=== PATIENT | female | born 1975 | race Caucasian/White ===

== ENCOUNTER 2019-10-14 02:00 | Inpatient (IN) | payer BC ==
[2019-10-14] VITALS (13 sets, daily range): BP systolic 90–102; BP diastolic 48–68
[~2019-10-14] VITALS: Ht 172.7 cm; Wt 88.1 kg
--- NOTE | 2019-10-14 02:00 | NUR ---
Received report from Selene at [facility]. Patient arrived to unit at 0150. Patient had complained of pain rating of 7 out of 10. Patient family showed up during the admission process. Received admit orders from Dr. Guevara. Patient bed was placed in lowest position and locked and call light placed within reach. Will continue to monitor patient.
[2019-10-14] MEDS ORDERED: VENL75CA PO (02:20)
[2019-10-14] MEDS ORDERED: ONDANSETRON PF 4 MG/2 ML VIAL. IV PRN ×2 (02:30→11:15)
[2019-10-14] MEDS ORDERED: diphenhydrAMINE 50 MG/ML VIAL IVP PRN (02:30)
[2019-10-14] MEDS ORDERED: ZOLPIDEM 5 MG TABLET. PO PRN (02:30)
[2019-10-14] MEDS: HYDROmorphone 2 MG/ML VIAL IV PRN ×2 (02:55→07:36)
[2019-10-14] MEDS: IV NORMAL SALINE 1000ML BAG 1,000 ML IV SCH ×4 (03:00→23:00)
[2019-10-14 05:10] LABS: BASO % 0 % (0-3); EOS # 0.1 x10^3/uL (0.0-0.7); EOS % 1 % (0-3); HEMATOCRIT 38.5 % (36.0-47.0); HEMOGLOBIN 12.9 g/dL (12.0-15.5); LYMPH # 0.9 x10^3/uL (1.0-4.8); LYMPH % 6 % (24-48); MEAN CORPUSCULAR HEMOGLOBIN 32 pg (25-35); MEAN CORPUSCULAR HGB CONC 33 g/dL (31-37); MEAN CORPUSCULAR VOLUME 97 fL (79-100); MONO % 6 % (0-9); NEUT # 13.5 x10^3/uL (1.8-7.7); NEUT % 87 % (31-73); PLATELET COUNT 154 x10^3/uL (140-400); RED BLOOD COUNT 3.99 x10^6/uL (3.50-5.40); RED CELL DISTRIBUTION WIDTH 13.6 % (11.5-14.5); WHITE BLOOD COUNT 15.5 x10^3/uL (4.0-11.0)
[2019-10-14 05:24] LABS: ALBUMIN/GLOBULIN RATIO 0.9 (1.0-1.7); CALCIUM 7.8 mg/dL (8.5-10.1); CREATININE 0.6 mg/dL (0.6-1.0); GFR 108.6; POTASSIUM 3.5 mmol/L (3.5-5.1); TOTAL BILIRUBIN 0.5 mg/dL (0.2-1.0); TOTAL PROTEIN 6.2 g/dL (6.4-8.2)
[2019-10-14] MEDS: PIPERACILLIN/TAZOBACTAM 3.375 GM in IV NORMAL SALINE 50ML 50 ML IV SCH ×4 (05:47→23:40)
[2019-10-14] MEDS: KETOROLAC 30 MG/ML VIAL. IVP PRN ×3 (05:47→17:22)
[2019-10-14 06:18] LABS: % BANDS 2 % (0-9); % EOS 1 % (0-5); % LYMPHS 12 % (24-48); % MONOS 3 % (0-10); % SEGS 82 % (35-66); PLT ESTIMATE ADEQUATE (ADEQUATE)
[2019-10-14 06:19] LABS: ANISOCYTOSIS SLIGHT
[2019-10-14] MEDS: ENOXAPARIN 40 MG/0.4 ML SYRINGE. SQ SCH (07:56)
--- NOTE | 2019-10-14 08:08 | PDOC ---
Provider Note Provider Note IR NOTE Consulted for possible abscess drainage, periappendiceal. CT reviewed. No drainable abscess is seen. there are changes of acute appendicitis. The inflamed appendix extends to the right adnexa, and abuts the right ovary where there is a small rim enhancing structure I believe to be an involuting ovarian cyst. The cyst measures just over 1 cm in diameter. No percutaneous intervention is planned at this time. VANITA GLASS MD Oct 14, 2019 08:08
[2019-10-14 08:29] LABS: PROTHROMBIN TIME PATIENT 13.9 SEC (11.7-14.0)
--- NOTE | 2019-10-14 08:56 | PDOC1 ---
History and Physical Date of Admission Date of Admission DATE: 10/14/19 TIME: 08:55 Source Source: Chart review, Patient History of Present Illness History of Present Illness Ms. Pompa, is a 44-year-old female transfer [facility] w/ acute right lower quadrant abdominal pain. She started with general abdominal pain that was mild 2 days ago, now is severe and she is tearful, even after toradol and IV dilaudid. It is now a sharp and stabbing feeling that is migrated to the right lower quadrant. CT scan showed acute appy, poss perf with inflammation near ovarian cyst. , She's had ovarian cysts in the past, reports left ovary removed previously she has fever and severe 10/10 pain or chills. She has had several episodes of vomiting due to the pain. Past Medical History Cardiovascular: No pertinent hx Pulmonary: No pertinent hx GI: No pertinent hx Heme/Onc: No pertinent hx Hepatobiliary: No pertinent hx Psych: No pertinent hx ENT: No pertinent hx Renal/: No pertinent hx Grav: 2 Para: 2 Past Surgical History Past Surgical History: Other (left ovary removed) Family History Family History: No Significant Social History Smoke: <1 pack per day (one or two a week) ALCOHOL: rare Drugs: None Current Medications Current Medications Current Medications Sodium Chloride 1,000 ml @ 100 mls/hr Q10H IV Last administered on 10/14/19at 03:00; Start 10/14/19 at 03:00 Ondansetron HCl (Zofran) 4 mg PRN Q4HRS PRN IV NAUSEA/VOMITING 1ST CHOICE; Start 10/14/19 at 02:30 Zolpidem Tartrate (Ambien) 5 mg PRN QHS PRN PO INSOMNIA; Start 10/14/19 at 02:30 Acetaminophen (Tylenol) 650 mg PRN Q4HRS PRN PO TEMP OVER 100.4F OR MILD PAIN; Start 10/14/19 at 02:30 Diphenhydramine HCl (Benadryl) 25 mg PRN Q4HRS PRN IVP ITCHING; Start 10/14/19 at 02:30 Enoxaparin Sodium (Lovenox 40mg Syringe) 40 mg DAILY SQ ; Start 10/14/19 at 09:00 Piperacillin Sod/ Tazobactam Sod 3.375 gm/Sodium Chloride 50 ml @ 100 mls/hr Q6HRS IV Last administered on 10/14/19at 05:47; Start 10/14/19 at 06:00 Metronidazole 100 ml @ 100 mls/hr Q8HRS IV Last administered on 10/14/19at 05:47; Start 10/14/19 at 06:00 Ketorolac Tromethamine (Toradol 30mg Vial) 30 mg PRN Q6HRS PRN IVP MODERATE PAIN 4-6 Last administered on 10/14/19at 08:23; Start 10/14/19 at 02:30 Hydromorphone HCl (Dilaudid) 1 mg PRN Q4HRS PRN IV SEVERE PAIN 7-10 Last administered on 10/14/19at 07:36; Start 10/14/19 at 02:30 Non-Formulary Medication (Venlafaxine Hcl (Effexor Xr)) 1 cap DAILY PO ; Start 10/14/19 at 09:00; Status UNV Active Scripts Active Reported Effexor Xr (Venlafaxine Hcl) 75 Mg Cap.er.24h 1 Cap PO DAILY Allergies Allergies: Coded Allergies: No Known Drug Allergies (Unverified , 10/14/19) ROS General: No: Chills, Night Sweats, Fatigue, Malaise, Appetite, Other PSYCHOLOGICAL ROS: No: Anxiety, Behavioral Disorder, Concentration difficultie, Decreased libido, Depression, Disorientation, Hallucinations, Hostility, Irritablity, Memory difficulties, Mood Swings, Obsessive thoughts, Physical abuse, Sexual abuse, Sleep disturbances, Suicidal ideation, Other Eyes: No Blurry vision, No Decreased vision, No Double vision, No Dry eyes, No Excessive tearing, No Eye Pain, No Itchy Eyes, No Loss of vision, No Photophobia, No Scotomata, No Uses contacts, No Uses glasses, No Other HEENT: No: Heacaches, Visual Changes, Hearing change, Nasal congestion, Nasal discharge, Oral lesions, Sinus pain, Sore Throat, Epistaxis, Sneezing, Snoring, Tinnitus, Vertigo, Vocal changes, Other Respiratory: No: Cough, Hemoptysis, Orthopnea, Pleuritic Pain, Shortness of breath, SOB with excertion, Sputum Changes, Stridor, Tachypnea, Wheezing, Other Cardiovascular: No Chest Pain, No Palpitations, No Orthopnea, No Paroxysmal Noc. Dyspnea, No Edema, No Lt Headedness, No Other Gastrointestinal: Yes Nausea, Yes Abdominal Pain; No Vomiting, No Diarrhea, No Constipation, No Melena, No Hematochezia, No Other Genitourinary: No Dysuria, No Frequency, No Incontinence, No Hematuria, No Retention, No Discharge, No Urgency, No Pain, No Flank Pain, No Other, No , No , No , No , No , No , No Musculoskeletal: No Gait Disturbance, No Joint Pain, No Joint Stiffness, No Joint Swelling, No Muscle Pain, No Muscular Weakness, No Pain In:, No Swelling In:, No Other Neurological: No Behavorial Changes, No Bowel/Bladder ControlChng, No Confusion, No Dizziness, No Gait Disturbance, No Headaches, No Impaired Coord/balance, No Memory Loss, No Numbness/Tingling, No Seizures, No Speech Problems, No Tremors, No Visual Changes, No Weakness, No Other Skin: Yes Dry Skin; No Eczema, No Hair Changes, No Lumps, No Mole Changes, No Mottling, No Nail Changes, No Pruritus, No Rash, No Skin Lesion Changes, No Other, No Acne Physical Exam General: Alert, Cooperative, severe distress (pain) HEENT: Atraumatic, PERRLA, EOMI, Mucous membr. moist/pink Lungs: Clear to auscultation, Normal air movement Abdomen: Other (tender, guarding, distress, RLQ pain) Extremities: No cyanosis, No edema, Normal pulses Skin: No rashes, No significant lesion Neuro: Normal speech, Sensation intact, Other Psych/Mental Status: Other (distress) Vitals Vitals Vital Signs Date Time Temp Pulse Resp B/P (MAP) Pulse Ox O2 Delivery O2 Flow Rate FiO2 10/14/19 07:36 18 Room Air 10/14/19 07:00 98.1 101 90/48 (62) 98 98.1 Labs Labs Laboratory Tests Test 10/14/19 03:40 10/14/19 08:04 White Blood Count 15.5 x10^3/uL (4.0-11.0) Red Blood Count 3.99 x10^6/uL (3.50-5.40) Hemoglobin 12.9 g/dL (12.0-15.5) Hematocrit 38.5 % (36.0-47.0) Mean Corpuscular Volume 97 fL (79-100) Mean Corpuscular Hemoglobin 32 pg (25-35) Mean Corpuscular Hemoglobin Concent 33 g/dL (31-37) Red Cell Distribution Width 13.6 % (11.5-14.5) Platelet Count 154 x10^3/uL (140-400) Neutrophils (%) (Auto) 87 % (31-73) Lymphocytes (%) (Auto) 6 % (24-48) Monocytes (%) (Auto) 6 % (0-9) Eosinophils (%) (Auto) 1 % (0-3) Basophils (%) (Auto) 0 % (0-3) Neutrophils # (Auto) 13.5 x10^3/uL (1.8-7.7) Lymphocytes # (Auto) 0.9 x10^3/uL (1.0-4.8) Monocytes # (Auto) 1.0 x10^3/uL (0.0-1.1) Eosinophils # (Auto) 0.1 x10^3/uL (0.0-0.7) Basophils # (Auto) 0.0 x10^3/uL (0.0-0.2) Segmented Neutrophils % 82 % (35-66) Band Neutrophils % 2 % (0-9) Lymphocytes % 12 % (24-48) Monocytes % 3 % (0-10) Eosinophils % 1 % (0-5) Platelet Estimate Adequate (ADEQUATE) Anisocytosis Slight Sodium Level 137 mmol/L (136-145) Potassium Level 3.5 mmol/L (3.5-5.1) Chloride Level 103 mmol/L (98-107) Carbon Dioxide Level 24 mmol/L (21-32) Anion Gap 10 (6-14) Blood Urea Nitrogen 13 mg/dL (7-20) Creatinine 0.6 mg/dL (0.6-1.0) Estimated GFR (Cockcroft-Gault) 108.6 BUN/Creatinine Ratio 22 (6-20) Glucose Level 98 mg/dL (70-99) Calcium Level 7.8 mg/dL (8.5-10.1) Total Bilirubin 0.5 mg/dL (0.2-1.0) Aspartate Amino Transf (AST/SGOT) 12 U/L (15-37) Alanine Aminotransferase (ALT/SGPT) 14 U/L (14-59) Alkaline Phosphatase 43 U/L (46-116) Total Protein 6.2 g/dL (6.4-8.2) Albumin 3.0 g/dL (3.4-5.0) Albumin/Globulin Ratio 0.9 (1.0-1.7) Prothrombin Time 13.9 SEC (11.7-14.0) Prothromb Time International Ratio 1.1 (0.8-1.1) Laboratory Tests Test 10/14/19 03:40 10/14/19 08:04 White Blood Count 15.5 x10^3/uL (4.0-11.0) Red Blood Count 3.99 x10^6/uL (3.50-5.40) Hemoglobin 12.9 g/dL (12.0-15.5) Hematocrit 38.5 % (36.0-47.0) Mean Corpuscular Volume 97 fL (79-100) Mean Corpuscular Hemoglobin 32 pg (25-35) Mean Corpuscular Hemoglobin Concent 33 g/dL (31-37) Red Cell Distribution Width 13.6 % (11.5-14.5) Platelet Count 154 x10^3/uL (140-400) Neutrophils (%) (Auto) 87 % (31-73) Lymphocytes (%) (Auto) 6 % (24-48) Monocytes (%) (Auto) 6 % (0-9) Eosinophils (%) (Auto) 1 % (0-3) Basophils (%) (Auto) 0 % (0-3) Neutrophils # (Auto) 13.5 x10^3/uL (1.8-7.7) Lymphocytes # (Auto) 0.9 x10^3/uL (1.0-4.8) Monocytes # (Auto) 1.0 x10^3/uL (0.0-1.1) Eosinophils # (Auto) 0.1 x10^3/uL (0.0-0.7) Basophils # (Auto) 0.0 x10^3/uL (0.0-0.2) Segmented Neutrophils % 82 % (35-66) Band Neutrophils % 2 % (0-9) Lymphocytes % 12 % (24-48) Monocytes % 3 % (0-10) Eosinophils % 1 % (0-5) Platelet Estimate Adequate (ADEQUATE) Anisocytosis Slight Sodium Level 137 mmol/L (136-145) Potassium Level 3.5 mmol/L (3.5-5.1) Chloride Level 103 mmol/L (98-107) Carbon Dioxide Level 24 mmol/L (21-32) Anion Gap 10 (6-14) Blood Urea Nitrogen 13 mg/dL (7-20) Creatinine 0.6 mg/dL (0.6-1.0) Estimated GFR (Cockcroft-Gault) 108.6 BUN/Creatinine Ratio 22 (6-20) Glucose Level 98 mg/dL (70-99) Calcium Level 7.8 mg/dL (8.5-10.1) Total Bilirubin 0.5 mg/dL (0.2-1.0) Aspartate Amino Transf (AST/SGOT) 12 U/L (15-37) Alanine Aminotransferase (ALT/SGPT) 14 U/L (14-59) Alkaline Phosphatase 43 U/L (46-116) Total Protein 6.2 g/dL (6.4-8.2) Albumin 3.0 g/dL (3.4-5.0) Albumin/Globulin Ratio 0.9 (1.0-1.7) Prothrombin Time 13.9 SEC (11.7-14.0) Prothromb Time International Ratio 1.1 (0.8-1.1) VTE Prophylaxis Ordered VTE Prophylaxis Devices: No VTE Pharmacological Prophylaxi: No Assessment/Plan Assessment/Plan acute abdominal pain, toradol and dilaudid giving some improvement acute perforated appendicitis sepsis, flagyl and zosyn, IV fluid will bolus IV saline hx depression, admit, IR consulted, will need OR Hemodynamically unstable?: No Is patient in severe pain?: Yes Justification for admission: acute appy and sepsis Is NPO status required?: Yes AKIN PICKETT MD Oct 14, 2019 08:56
[2019-10-14] MEDS: VENLAFAXINE XR 37.5 MG CAP.ER.24H. PO SCH (09:00)
[2019-10-14] MEDS ORDERED: IV NORMAL SALINE 1000ML BAG 1,000 ML IV ONE (09:00)
--- NOTE | 2019-10-14 10:47 | NUR ---
SW following for discharge planning. Chart reviewed, discussed with RN. Pt is from home with pt having surgery today. SW will continue to follow for any discharge planning needs.
--- NOTE | 2019-10-14 11:06 | PDOC2 ---
CONSULT Date of Consult Date of Consult DATE: 10/14/19 TIME: 11:00 Reason for Consult Reason for Consult: perforated appendicitis Referring Physician Referring Physician: Dr. Conti Identification/Chief Complaint Chief Complaint RLQ abd pain Source Source: Chart review, Patient History of Present Illness Reason for Visit: 44 yo F with abd pain beginning on 10/11, periumbilical and developing in RLQ. Pain is severe and not improved, if possibly slightly worse since admission. Also noted to have hematuria. Associated N/V. Accompanied by supportive . Past Medical History Cardiovascular: No pertinent hx Pulmonary: No pertinent hx GI: No pertinent hx Heme/Onc: No pertinent hx Hepatobiliary: No pertinent hx Psych: No pertinent hx ENT: No pertinent hx Renal/: No pertinent hx Grav: 2 Para: 2 Past Surgical History Past Surgical History: Other (left ovary removed) Family History Family History: No Significant Social History <1 pack per day (one or two a week) ALCOHOL: rare Drugs: None Current Medications Current Medications Current Medications Sodium Chloride 1,000 ml @ 100 mls/hr Q10H IV Last administered on 10/14/19at 03:00; Start 10/14/19 at 03:00 Ondansetron HCl (Zofran) 4 mg PRN Q4HRS PRN IV NAUSEA/VOMITING 1ST CHOICE; Start 10/14/19 at 02:30 Zolpidem Tartrate (Ambien) 5 mg PRN QHS PRN PO INSOMNIA; Start 10/14/19 at 02:30 Acetaminophen (Tylenol) 650 mg PRN Q4HRS PRN PO TEMP OVER 100.4F OR MILD PAIN; Start 10/14/19 at 02:30 Diphenhydramine HCl (Benadryl) 25 mg PRN Q4HRS PRN IVP ITCHING; Start 10/14/19 at 02:30 Enoxaparin Sodium (Lovenox 40mg Syringe) 40 mg DAILY SQ ; Start 10/14/19 at 09:00 Piperacillin Sod/ Tazobactam Sod 3.375 gm/Sodium Chloride 50 ml @ 100 mls/hr Q6HRS IV Last administered on 10/14/19at 05:47; Start 10/14/19 at 06:00 Metronidazole 100 ml @ 100 mls/hr Q8HRS IV Last administered on 10/14/19at 05:47; Start 10/14/19 at 06:00 Ketorolac Tromethamine (Toradol 30mg Vial) 30 mg PRN Q6HRS PRN IVP MODERATE PAIN 4-6 Last administered on 10/14/19at 08:23; Start 10/14/19 at 02:30 Hydromorphone HCl (Dilaudid) 1 mg PRN Q4HRS PRN IV SEVERE PAIN 7-10 Last administered on 10/14/19at 07:36; Start 10/14/19 at 02:30 Venlafaxine HCl (Effexor Xr) 75 mg DAILY PO ; Start 10/14/19 at 09:00 Sodium Chloride 1,000 ml @ 1,000 mls/hr 1X ONCE IV ; Start 10/14/19 at 09:00; Stop 10/14/19 at 09:59; Status DC Active Scripts Active Reported Effexor Xr (Venlafaxine Hcl) 75 Mg Cap.er.24h 1 Cap PO DAILY Allergies Allergies: Coded Allergies: No Known Drug Allergies (Unverified , 10/14/19) ROS Gastrointestinal: Yes Nausea, Yes Vomiting, Yes Abdominal Pain Physical Exam General: Alert, Oriented X3, Cooperative, moderate distress HEENT: Atraumatic Lungs: Normal air movement Abdomen: Soft, Other (TTP RLQ and diffusely, rovsing sign positive) Extremities: No clubbing, No cyanosis Skin: No rashes, No breakdown Neuro: Normal speech, Sensation intact Psych/Mental Status: Mental status NL, Mood NL Vitals VITALS Vital Signs Date Time Temp Pulse Resp B/P (MAP) Pulse Ox O2 Delivery O2 Flow Rate FiO2 10/14/19 08:00 Room Air 10/14/19 07:36 18 10/14/19 07:00 98.1 101 90/48 (62) 98 98.1 Labs Labs Laboratory Tests Test 10/14/19 03:40 10/14/19 08:04 White Blood Count 15.5 x10^3/uL (4.0-11.0) Red Blood Count 3.99 x10^6/uL (3.50-5.40) Hemoglobin 12.9 g/dL (12.0-15.5) Hematocrit 38.5 % (36.0-47.0) Mean Corpuscular Volume 97 fL (79-100) Mean Corpuscular Hemoglobin 32 pg (25-35) Mean Corpuscular Hemoglobin Concent 33 g/dL (31-37) Red Cell Distribution Width 13.6 % (11.5-14.5) Platelet Count 154 x10^3/uL (140-400) Neutrophils (%) (Auto) 87 % (31-73) Lymphocytes (%) (Auto) 6 % (24-48) Monocytes (%) (Auto) 6 % (0-9) Eosinophils (%) (Auto) 1 % (0-3) Basophils (%) (Auto) 0 % (0-3) Neutrophils # (Auto) 13.5 x10^3/uL (1.8-7.7) Lymphocytes # (Auto) 0.9 x10^3/uL (1.0-4.8) Monocytes # (Auto) 1.0 x10^3/uL (0.0-1.1) Eosinophils # (Auto) 0.1 x10^3/uL (0.0-0.7) Basophils # (Auto) 0.0 x10^3/uL (0.0-0.2) Segmented Neutrophils % 82 % (35-66) Band Neutrophils % 2 % (0-9) Lymphocytes % 12 % (24-48) Monocytes % 3 % (0-10) Eosinophils % 1 % (0-5) Platelet Estimate Adequate (ADEQUATE) Anisocytosis Slight Sodium Level 137 mmol/L (136-145) Potassium Level 3.5 mmol/L (3.5-5.1) Chloride Level 103 mmol/L (98-107) Carbon Dioxide Level 24 mmol/L (21-32) Anion Gap 10 (6-14) Blood Urea Nitrogen 13 mg/dL (7-20) Creatinine 0.6 mg/dL (0.6-1.0) Estimated GFR (Cockcroft-Gault) 108.6 BUN/Creatinine Ratio 22 (6-20) Glucose Level 98 mg/dL (70-99) Calcium Level 7.8 mg/dL (8.5-10.1) Total Bilirubin 0.5 mg/dL (0.2-1.0) Aspartate Amino Transf (AST/SGOT) 12 U/L (15-37) Alanine Aminotransferase (ALT/SGPT) 14 U/L (14-59) Alkaline Phosphatase 43 U/L (46-116) Total Protein 6.2 g/dL (6.4-8.2) Albumin 3.0 g/dL (3.4-5.0) Albumin/Globulin Ratio 0.9 (1.0-1.7) Prothrombin Time 13.9 SEC (11.7-14.0) Prothromb Time International Ratio 1.1 (0.8-1.1) Laboratory Tests Test 10/14/19 03:40 10/14/19 08:04 White Blood Count 15.5 x10^3/uL (4.0-11.0) Red Blood Count 3.99 x10^6/uL (3.50-5.40) Hemoglobin 12.9 g/dL (12.0-15.5) Hematocrit 38.5 % (36.0-47.0) Mean Corpuscular Volume 97 fL (79-100) Mean Corpuscular Hemoglobin 32 pg (25-35) Mean Corpuscular Hemoglobin Concent 33 g/dL (31-37) Red Cell Distribution Width 13.6 % (11.5-14.5) Platelet Count 154 x10^3/uL (140-400) Neutrophils (%) (Auto) 87 % (31-73) Lymphocytes (%) (Auto) 6 % (24-48) Monocytes (%) (Auto) 6 % (0-9) Eosinophils (%) (Auto) 1 % (0-3) Basophils (%) (Auto) 0 % (0-3) Neutrophils # (Auto) 13.5 x10^3/uL (1.8-7.7) Lymphocytes # (Auto) 0.9 x10^3/uL (1.0-4.8) Monocytes # (Auto) 1.0 x10^3/uL (0.0-1.1) Eosinophils # (Auto) 0.1 x10^3/uL (0.0-0.7) Basophils # (Auto) 0.0 x10^3/uL (0.0-0.2) Segmented Neutrophils % 82 % (35-66) Band Neutrophils % 2 % (0-9) Lymphocytes % 12 % (24-48) Monocytes % 3 % (0-10) Eosinophils % 1 % (0-5) Platelet Estimate Adequate (ADEQUATE) Anisocytosis Slight Sodium Level 137 mmol/L (136-145) Potassium Level 3.5 mmol/L (3.5-5.1) Chloride Level 103 mmol/L (98-107) Carbon Dioxide Level 24 mmol/L (21-32) Anion Gap 10 (6-14) Blood Urea Nitrogen 13 mg/dL (7-20) Creatinine 0.6 mg/dL (0.6-1.0) Estimated GFR (Cockcroft-Gault) 108.6 BUN/Creatinine Ratio 22 (6-20) Glucose Level 98 mg/dL (70-99) Calcium Level 7.8 mg/dL (8.5-10.1) Total Bilirubin 0.5 mg/dL (0.2-1.0) Aspartate Amino Transf (AST/SGOT) 12 U/L (15-37) Alanine Aminotransferase (ALT/SGPT) 14 U/L (14-59) Alkaline Phosphatase 43 U/L (46-116) Total Protein 6.2 g/dL (6.4-8.2) Albumin 3.0 g/dL (3.4-5.0) Albumin/Globulin Ratio 0.9 (1.0-1.7) Prothrombin Time 13.9 SEC (11.7-14.0) Prothromb Time International Ratio 1.1 (0.8-1.1) Images Images CT at [facility] reviewed and c/w perforated appendicitis Assessment/Plan Assessment/Plan Perforated appendicitis. Given pain and peritoneal signs, conservative management with IV abx and bowel rest not appropriate. Will proceed with laparoscopic versus open appendectomy. R/R/B/A d/w pt and pt's supportive family. Risks, including, but not limited to: bleeding, infection, damage to surrounding structures, risk of anesthesia, risk of open, risk of . Pt is at high risk for post operative abscess. They appear to understand, their questions are answered and they elect to pro ceed. Thanks for consult! LINA WILLIAM MD Oct 14, 2019 11:06
[2019-10-14] MEDS ORDERED: IV RINGERS,LACTATED 1000ML 1,000 ML IV SCH (11:09)
[2019-10-14] MEDS ORDERED: PROCHLORPERAZINE 10 MG/2 ML VIAL. IV PRN (11:15)
[2019-10-14] MEDS ORDERED: fentaNYL PF VIAL 100 MCG/2 ML VIAL IV PRN (11:15)
[2019-10-14] MEDS ORDERED: MORPHINE SULFATE 2 MG/ML VIAL. IV PRN ×2 (11:15→13:30)
[2019-10-14] MEDS ORDERED: HYDROmorphone 2 MG/ML VIAL IV PRN (11:15)
[2019-10-14] MEDS ORDERED: fentaNYL PF VIAL 100 MCG/2 ML VIAL ONE ×2 (11:37→12:49)
[2019-10-14] MEDS: fentaNYL PF VIAL 100 MCG/2 ML VIAL IV PRN ×2 (11:37→13:34)
[2019-10-14] MEDS ORDERED: ROCURONIUM 50 MG/5 ML VIAL. ONE (11:44)
[2019-10-14] MEDS ORDERED: BUPIVACAINE-EPI 0.5%-1:200000 MPF 30 ML VIAL. INJ ONE (12:00)
[2019-10-14 12:04] LABS: U PREG PATIENT NEGATIVE (NEG)
[2019-10-14] MEDS ORDERED: PHENYLEPHRINE in 0.9% NACL PF 1 MG/10 ML SYRINGE. IV ONE (12:27)
[2019-10-14] MEDS ORDERED: LIDOCAINE 2% PF 5 ML VIAL. ONE (12:27)
[2019-10-14] MEDS ORDERED: DEXAMETHASONE SOD PHOS 4 MG/ML VIAL ONE (12:27)
[2019-10-14] MEDS ORDERED: PROPOFOL 20 ML IV ONE (12:27)
[2019-10-14] MEDS ORDERED: ONDANSETRON PF 4 MG/2 ML VIAL. ONE (12:27)
[2019-10-14] MEDS ORDERED: NEOSTIGMINE METHYLSULFATE 5 MG/5 ML SYRINGE. ONE (13:02)
[2019-10-14] MEDS ORDERED: GLYCOPYRROLATE 1 MG/5 ML VIAL. ONE (13:02)
[2019-10-14] MEDS: IV RINGERS,LACTATED 1000ML 1,000 ML IV SCH ×2 (13:25→23:10)
[2019-10-14] MEDS ORDERED: ENOXAPARIN 40 MG/0.4 ML SYRINGE. SQ SCH (13:30)
[2019-10-14] MEDS ORDERED: 0.9 % SODIUM CHLORIDE 10 ML DISP.SYRIN. IV PRN (13:30)
[2019-10-14] MEDS ORDERED: ONDANSETRON PF 4 MG/2 ML VIAL. IVP PRN (13:30)
[2019-10-14] MEDS ORDERED: NALOXONE 0.4 MG/ML VIAL. IV PRN (13:30)
--- NOTE | 2019-10-14 13:39 | PDOC4 ---
OPERATIVE NOTE Date: Date: Oct 14, 2019 Pre-Op Diagnosis: Perforated appendicitis Post-Op Diagnosis: same Procedure Performed: Laparoscopic appendectomy Surgeon: Zechariah William Anesthesia Type: GETA plus local Blood Loss: 50 Specimans Obtained: appendix Findings: Perforated appendicitis with diffuse purulent fluid throughout the abdomen. Gangrenous distal 1/2 of appendix. No obvious feculent material. Complications: none Operative Note: After obtaining informed consent, patient was taken to OR, induced under GETA and prepped in the usual fashion. 5 mm port placed LLQ and suprapubic, 12 port placed umbilical, all under laparoscopic guidance. Abdominal cavity was explored and normal except as indicated above. The uterus and right ovary were inflamed, secondary to diffuse abscess, but otherwise normal. Small bowel was erythematous from abscess, but otherwise normal. Viscera bluntly dissected off the appendix and abdominal wall. Appendix was bluntly dissected out. Defect created in mesoappendix. General load DREW taken across base of appendix. Mesoappendix divided with vascular load. Additional hemostasis obtained with clips. Appendix placed in bag, delivered and sent to pathology. Copious irrigation using 4 liters of saline. No evidence of bleeding or other pathology. Ports removed without bleeding. Fascia repaired with 0 vicryl. Skin repaired with 4 0 monocryl. Dressing placed. Patient tolerated procedure well and sent to PACU in stable condition. All counts correct. Wound class is 4. LINA WILLIAM MD Oct 14, 2019 13:38
[2019-10-14] MEDS: HYDROcodone/APAP 5/325MG 1 TAB TABLET PO PRN (20:38)
[2019-10-15 03:00] VITALS: BP 95/56
[2019-10-15 05:22] LABS: BASO % 0 % (0-3); EOS % 0 % (0-3); HEMATOCRIT 36.3 % (36.0-47.0); HEMOGLOBIN 12.3 g/dL (12.0-15.5); LYMPH % 11 % (24-48); MEAN CORPUSCULAR HEMOGLOBIN 33 pg (25-35); MEAN CORPUSCULAR HGB CONC 34 g/dL (31-37); MEAN CORPUSCULAR VOLUME 97 fL (79-100); MONO # 0.4 x10^3/uL (0.0-1.1); MONO % 4 % (0-9); NEUT # 8.1 x10^3/uL (1.8-7.7); NEUT % 85 % (31-73); PLATELET COUNT 152 x10^3/uL (140-400); RED BLOOD COUNT 3.73 x10^6/uL (3.50-5.40); RED CELL DISTRIBUTION WIDTH 13.8 % (11.5-14.5); WHITE BLOOD COUNT 9.6 x10^3/uL (4.0-11.0)
[2019-10-15] MEDS: PIPERACILLIN/TAZOBACTAM 3.375 GM in IV NORMAL SALINE 50ML 50 ML IV SCH ×3 (06:00→18:46)
[2019-10-15] MEDS: HYDROcodone/APAP 5/325MG 1 TAB TABLET PO PRN ×4 (06:00→20:29)
[2019-10-15 06:06] LABS: CALCIUM 7.9 mg/dL (8.5-10.1); CREATININE 0.7 mg/dL (0.6-1.0)
[2019-10-15 06:07] LABS: GFR 90.9; POTASSIUM 3.9 mmol/L (3.5-5.1)
[2019-10-15 07:00] VITALS: BP 84/48
[2019-10-15] MEDS: VENLAFAXINE XR 37.5 MG CAP.ER.24H. PO SCH (08:31)
[2019-10-15] MEDS: ENOXAPARIN 40 MG/0.4 ML SYRINGE. SQ SCH (08:32)
--- NOTE | 2019-10-15 09:08 | PDOC ---
SURGICAL PROGRESS NOTE Subjective + flatus ambulating pink colored urine Vital Signs Vital Signs Date Time Temp Pulse Resp B/P (MAP) Pulse Ox O2 Delivery O2 Flow Rate FiO2 10/15/19 07:00 98.5 88 18 84/48 (60) 95 Room Air 98.5 10/14/19 13:45 10 I&O Intake and Output 10/15/19 07:00 Intake Total 1090 ml Output Total 61 ml Balance 1029 ml Intake Oral 240 ml IV Total 850 ml Output Urine Total 51 ml Estimated Blood Loss 10 ml # Voids 3 General: Alert, Oriented X3, Cooperative Abdomen: Soft, Other (ND, lap dressings dry) Labs Laboratory Tests Test 10/14/19 03:40 10/14/19 08:04 10/14/19 11:00 10/15/19 04:10 White Blood Count 15.5 x10^3/uL (4.0-11.0) 9.6 x10^3/uL (4.0-11.0) Red Blood Count 3.99 x10^6/uL (3.50-5.40) 3.73 x10^6/uL (3.50-5.40) Hemoglobin 12.9 g/dL (12.0-15.5) 12.3 g/dL (12.0-15.5) Hematocrit 38.5 % (36.0-47.0) 36.3 % (36.0-47.0) Mean Corpuscular Volume 97 fL (79-100) 97 fL (79-100) Mean Corpuscular Hemoglobin 32 pg (25-35) 33 pg (25-35) Mean Corpuscular Hemoglobin Concent 33 g/dL (31-37) 34 g/dL (31-37) Red Cell Distribution Width 13.6 % (11.5-14.5) 13.8 % (11.5-14.5) Platelet Count 154 x10^3/uL (140-400) 152 x10^3/uL (140-400) Neutrophils (%) (Auto) 87 % (31-73) 85 % (31-73) Lymphocytes (%) (Auto) 6 % (24-48) 11 % (24-48) Monocytes (%) (Auto) 6 % (0-9) 4 % (0-9) Eosinophils (%) (Auto) 1 % (0-3) 0 % (0-3) Basophils (%) (Auto) 0 % (0-3) 0 % (0-3) Neutrophils # (Auto) 13.5 x10^3/uL (1.8-7.7) 8.1 x10^3/uL (1.8-7.7) Lymphocytes # (Auto) 0.9 x10^3/uL (1.0-4.8) 1.0 x10^3/uL (1.0-4.8) Monocytes # (Auto) 1.0 x10^3/uL (0.0-1.1) 0.4 x10^3/uL (0.0-1.1) Eosinophils # (Auto) 0.1 x10^3/uL (0.0-0.7) 0.0 x10^3/uL (0.0-0.7) Basophils # (Auto) 0.0 x10^3/uL (0.0-0.2) 0.0 x10^3/uL (0.0-0.2) Segmented Neutrophils % 82 % (35-66) Band Neutrophils % 2 % (0-9) Lymphocytes % 12 % (24-48) Monocytes % 3 % (0-10) Eosinophils % 1 % (0-5) Platelet Estimate Adequate (ADEQUATE) Anisocytosis Slight Sodium Level 137 mmol/L (136-145) 140 mmol/L (136-145) Potassium Level 3.5 mmol/L (3.5-5.1) 3.9 mmol/L (3.5-5.1) Chloride Level 103 mmol/L (98-107) 107 mmol/L (98-107) Carbon Dioxide Level 24 mmol/L (21-32) 22 mmol/L (21-32) Anion Gap 10 (6-14) 11 (6-14) Blood Urea Nitrogen 13 mg/dL (7-20) 11 mg/dL (7-20) Creatinine 0.6 mg/dL (0.6-1.0) 0.7 mg/dL (0.6-1.0) Estimated GFR (Cockcroft-Gault) 108.6 90.9 BUN/Creatinine Ratio 22 (6-20) Glucose Level 98 mg/dL (70-99) 109 mg/dL (70-99) Calcium Level 7.8 mg/dL (8.5-10.1) 7.9 mg/dL (8.5-10.1) Total Bilirubin 0.5 mg/dL (0.2-1.0) Aspartate Amino Transf (AST/SGOT) 12 U/L (15-37) Alanine Aminotransferase (ALT/SGPT) 14 U/L (14-59) Alkaline Phosphatase 43 U/L (46-116) Total Protein 6.2 g/dL (6.4-8.2) Albumin 3.0 g/dL (3.4-5.0) Albumin/Globulin Ratio 0.9 (1.0-1.7) Prothrombin Time 13.9 SEC (11.7-14.0) Prothromb Time International Ratio 1.1 (0.8-1.1) Urine Test Negative (NEG) Laboratory Tests Test 10/14/19 11:00 10/15/19 04:10 Urine Test Negative (NEG) White Blood Count 9.6 x10^3/uL (4.0-11.0) Red Blood Count 3.73 x10^6/uL (3.50-5.40) Hemoglobin 12.3 g/dL (12.0-15.5) Hematocrit 36.3 % (36.0-47.0) Mean Corpuscular Volume 97 fL (79-100) Mean Corpuscular Hemoglobin 33 pg (25-35) Mean Corpuscular Hemoglobin Concent 34 g/dL (31-37) Red Cell Distribution Width 13.8 % (11.5-14.5) Platelet Count 152 x10^3/uL (140-400) Neutrophils (%) (Auto) 85 % (31-73) Lymphocytes (%) (Auto) 11 % (24-48) Monocytes (%) (Auto) 4 % (0-9) Eosinophils (%) (Auto) 0 % (0-3) Basophils (%) (Auto) 0 % (0-3) Neutrophils # (Auto) 8.1 x10^3/uL (1.8-7.7) Lymphocytes # (Auto) 1.0 x10^3/uL (1.0-4.8) Monocytes # (Auto) 0.4 x10^3/uL (0.0-1.1) Eosinophils # (Auto) 0.0 x10^3/uL (0.0-0.7) Basophils # (Auto) 0.0 x10^3/uL (0.0-0.2) Sodium Level 140 mmol/L (136-145) Potassium Level 3.9 mmol/L (3.5-5.1) Chloride Level 107 mmol/L (98-107) Carbon Dioxide Level 22 mmol/L (21-32) Anion Gap 11 (6-14) Blood Urea Nitrogen 11 mg/dL (7-20) Creatinine 0.7 mg/dL (0.6-1.0) Estimated GFR (Cockcroft-Gault) 90.9 Glucose Level 109 mg/dL (70-99) Calcium Level 7.9 mg/dL (8.5-10.1) Assessment/Plan s/p appy, perf, gang continue IV abx lab in AM push fluids NAEEM SINGLETARY APRN Oct 15, 2019 09:08
[2019-10-15] MEDS: IV NORMAL SALINE 1000ML BAG 1,000 ML IV SCH ×3 (09:57→20:28)
[2019-10-15 11:00] VITALS: BP 96/52
[2019-10-15] MEDS ORDERED: POLYETHYLENE GLYCOL 3350 17 GM PACKET. PO ONE (13:00)
[2019-10-15] MEDS ORDERED: MAGNESIUM HYDROXIDE 2,400 MG/30 ML ORAL.SUSP. PO PRN (13:00)
[2019-10-15] MEDS ORDERED: DOCUSATE SODIUM 100 MG CAPSULE. PO PRN (13:00)
[2019-10-15] MEDS ORDERED: PHENYLEPH/MINERAL OIL/PETROLAT RECTAL OINTMENT TUBE. RC PRN (13:00)
--- NOTE | 2019-10-15 13:07 | PDOC ---
PROGRESS NOTES Chief Complaint Chief Complaint acute perforated appendicitis, w./ acute abd pain sepsis, zosyn, IV fluid will bolus IV saline hx depression, History of Present Illness History of Present Illness feels much better ambulating, doing well she is very worried about constipation, no movement in 4 days, meds added cont IV Fluid for low blood pressure, HR ok, WBC better Vitals Vitals Vital Signs Date Time Temp Pulse Resp B/P (MAP) Pulse Ox O2 Delivery O2 Flow Rate FiO2 10/15/19 11:45 Room Air 10/15/19 11:00 98.2 84 18 96/52 (67) 98 98.2 10/14/19 13:45 10 Physical Exam General: Alert, Oriented X3, Cooperative Abdomen: Soft, Other (ND, lap dressings dry) Extremities: No clubbing, No cyanosis Skin: No rashes, No breakdown Labs LABS Laboratory Tests Test 10/15/19 04:10 White Blood Count 9.6 x10^3/uL (4.0-11.0) Red Blood Count 3.73 x10^6/uL (3.50-5.40) Hemoglobin 12.3 g/dL (12.0-15.5) Hematocrit 36.3 % (36.0-47.0) Mean Corpuscular Volume 97 fL (79-100) Mean Corpuscular Hemoglobin 33 pg (25-35) Mean Corpuscular Hemoglobin Concent 34 g/dL (31-37) Red Cell Distribution Width 13.8 % (11.5-14.5) Platelet Count 152 x10^3/uL (140-400) Neutrophils (%) (Auto) 85 % (31-73) Lymphocytes (%) (Auto) 11 % (24-48) Monocytes (%) (Auto) 4 % (0-9) Eosinophils (%) (Auto) 0 % (0-3) Basophils (%) (Auto) 0 % (0-3) Neutrophils # (Auto) 8.1 x10^3/uL (1.8-7.7) Lymphocytes # (Auto) 1.0 x10^3/uL (1.0-4.8) Monocytes # (Auto) 0.4 x10^3/uL (0.0-1.1) Eosinophils # (Auto) 0.0 x10^3/uL (0.0-0.7) Basophils # (Auto) 0.0 x10^3/uL (0.0-0.2) Sodium Level 140 mmol/L (136-145) Potassium Level 3.9 mmol/L (3.5-5.1) Chloride Level 107 mmol/L (98-107) Carbon Dioxide Level 22 mmol/L (21-32) Anion Gap 11 (6-14) Blood Urea Nitrogen 11 mg/dL (7-20) Creatinine 0.7 mg/dL (0.6-1.0) Estimated GFR (Cockcroft-Gault) 90.9 Glucose Level 109 mg/dL (70-99) Calcium Level 7.9 mg/dL (8.5-10.1) Comment Review of Relevant I have reviewed the following items marquis (where applicable) has been applied. Labs Laboratory Tests Test 10/14/19 03:40 10/14/19 08:04 10/14/19 11:00 10/15/19 04:10 White Blood Count 15.5 x10^3/uL (4.0-11.0) 9.6 x10^3/uL (4.0-11.0) Red Blood Count 3.99 x10^6/uL (3.50-5.40) 3.73 x10^6/uL (3.50-5.40) Hemoglobin 12.9 g/dL (12.0-15.5) 12.3 g/dL (12.0-15.5) Hematocrit 38.5 % (36.0-47.0) 36.3 % (36.0-47.0) Mean Corpuscular Volume 97 fL (79-100) 97 fL (79-100) Mean Corpuscular Hemoglobin 32 pg (25-35) 33 pg (25-35) Mean Corpuscular Hemoglobin Concent 33 g/dL (31-37) 34 g/dL (31-37) Red Cell Distribution Width 13.6 % (11.5-14.5) 13.8 % (11.5-14.5) Platelet Count 154 x10^3/uL (140-400) 152 x10^3/uL (140-400) Neutrophils (%) (Auto) 87 % (31-73) 85 % (31-73) Lymphocytes (%) (Auto) 6 % (24-48) 11 % (24-48) Monocytes (%) (Auto) 6 % (0-9) 4 % (0-9) Eosinophils (%) (Auto) 1 % (0-3) 0 % (0-3) Basophils (%) (Auto) 0 % (0-3) 0 % (0-3) Neutrophils # (Auto) 13.5 x10^3/uL (1.8-7.7) 8.1 x10^3/uL (1.8-7.7) Lymphocytes # (Auto) 0.9 x10^3/uL (1.0-4.8) 1.0 x10^3/uL (1.0-4.8) Monocytes # (Auto) 1.0 x10^3/uL (0.0-1.1) 0.4 x10^3/uL (0.0-1.1) Eosinophils # (Auto) 0.1 x10^3/uL (0.0-0.7) 0.0 x10^3/uL (0.0-0.7) Basophils # (Auto) 0.0 x10^3/uL (0.0-0.2) 0.0 x10^3/uL (0.0-0.2) Segmented Neutrophils % 82 % (35-66) Band Neutrophils % 2 % (0-9) Lymphocytes % 12 % (24-48) Monocytes % 3 % (0-10) Eosinophils % 1 % (0-5) Platelet Estimate Adequate (ADEQUATE) Anisocytosis Slight Sodium Level 137 mmol/L (136-145) 140 mmol/L (136-145) Potassium Level 3.5 mmol/L (3.5-5.1) 3.9 mmol/L (3.5-5.1) Chloride Level 103 mmol/L (98-107) 107 mmol/L (98-107) Carbon Dioxide Level 24 mmol/L (21-32) 22 mmol/L (21-32) Anion Gap 10 (6-14) 11 (6-14) Blood Urea Nitrogen 13 mg/dL (7-20) 11 mg/dL (7-20) Creatinine 0.6 mg/dL (0.6-1.0) 0.7 mg/dL (0.6-1.0) Estimated GFR (Cockcroft-Gault) 108.6 90.9 BUN/Creatinine Ratio 22 (6-20) Glucose Level 98 mg/dL (70-99) 109 mg/dL (70-99) Calcium Level 7.8 mg/dL (8.5-10.1) 7.9 mg/dL (8.5-10.1) Total Bilirubin 0.5 mg/dL (0.2-1.0) Aspartate Amino Transf (AST/SGOT) 12 U/L (15-37) Alanine Aminotransferase (ALT/SGPT) 14 U/L (14-59) Alkaline Phosphatase 43 U/L (46-116) Total Protein 6.2 g/dL (6.4-8.2) Albumin 3.0 g/dL (3.4-5.0) Albumin/Globulin Ratio 0.9 (1.0-1.7) Prothrombin Time 13.9 SEC (11.7-14.0) Prothromb Time International Ratio 1.1 (0.8-1.1) Urine Test Negative (NEG) Laboratory Tests Test 10/15/19 04:10 White Blood Count 9.6 x10^3/uL (4.0-11.0) Red Blood Count 3.73 x10^6/uL (3.50-5.40) Hemoglobin 12.3 g/dL (12.0-15.5) Hematocrit 36.3 % (36.0-47.0) Mean Corpuscular Volume 97 fL (79-100) Mean Corpuscular Hemoglobin 33 pg (25-35) Mean Corpuscular Hemoglobin Concent 34 g/dL (31-37) Red Cell Distribution Width 13.8 % (11.5-14.5) Platelet Count 152 x10^3/uL (140-400) Neutrophils (%) (Auto) 85 % (31-73) Lymphocytes (%) (Auto) 11 % (24-48) Monocytes (%) (Auto) 4 % (0-9) Eosinophils (%) (Auto) 0 % (0-3) Basophils (%) (Auto) 0 % (0-3) Neutrophils # (Auto) 8.1 x10^3/uL (1.8-7.7) Lymphocytes # (Auto) 1.0 x10^3/uL (1.0-4.8) Monocytes # (Auto) 0.4 x10^3/uL (0.0-1.1) Eosinophils # (Auto) 0.0 x10^3/uL (0.0-0.7) Basophils # (Auto) 0.0 x10^3/uL (0.0-0.2) Sodium Level 140 mmol/L (136-145) Potassium Level 3.9 mmol/L (3.5-5.1) Chloride Level 107 mmol/L (98-107) Carbon Dioxide Level 22 mmol/L (21-32) Anion Gap 11 (6-14) Blood Urea Nitrogen 11 mg/dL (7-20) Creatinine 0.7 mg/dL (0.6-1.0) Estimated GFR (Cockcroft-Gault) 90.9 Glucose Level 109 mg/dL (70-99) Calcium Level 7.9 mg/dL (8.5-10.1) Medications Current Medications Sodium Chloride 1,000 ml @ 100 mls/hr Q10H IV Last administered on 10/15/19at 09:57; Start 10/14/19 at 03:00 Ondansetron HCl (Zofran) 4 mg PRN Q4HRS PRN IV NAUSEA/VOMITING 1ST CHOICE; Start 10/14/19 at 02:30; Stop 10/14/19 at 13:44; Status DC Zolpidem Tartrate (Ambien) 5 mg PRN QHS PRN PO INSOMNIA; Start 10/14/19 at 02:30 Acetaminophen (Tylenol) 650 mg PRN Q4HRS PRN PO TEMP OVER 100.4F OR MILD PAIN; Start 10/14/19 at 02:30 Diphenhydramine HCl (Benadryl) 25 mg PRN Q4HRS PRN IVP ITCHING; Start 10/14/19 at 02:30 Enoxaparin Sodium (Lovenox 40mg Syringe) 40 mg DAILY SQ Last administered on 10/15/19at 08:32; Start 10/14/19 at 09:00 Piperacillin Sod/ Tazobactam Sod 3.375 gm/Sodium Chloride 50 ml @ 100 mls/hr Q6HRS IV Last administered on 10/15/19at 12:32; Start 10/14/19 at 06:00 Metronidazole 100 ml @ 100 mls/hr Q8HRS IV Last administered on 10/14/19at 14:33; Start 10/14/19 at 06:00; Stop 10/14/19 at 17:01; Status DC Ketorolac Tromethamine (Toradol 30mg Vial) 30 mg PRN Q6HRS PRN IVP MODERATE PAIN 4-6 Last administered on 10/14/19at 17:22; Start 10/14/19 at 02:30 Hydromorphone HCl (Dilaudid) 1 mg PRN Q4HRS PRN IV SEVERE PAIN 7-10 Last administered on 10/14/19at 07:36; Start 10/14/19 at 02:30 Venlafaxine HCl (Effexor Xr) 75 mg DAILY PO Last administered on 10/15/19at 08:31; Start 10/14/19 at 09:00 Sodium Chloride 1,000 ml @ 1,000 mls/hr 1X ONCE IV ; Start 10/14/19 at 09:00; Stop 10/14/19 at 09:59; Status DC Ondansetron HCl (Zofran) 4 mg PRN Q6HRS PRN IV NAUSEA/VOMITING; Start 10/14/19 at 11:15; Stop 10/14/19 at 13:44; Status DC Fentanyl Citrate (Fentanyl 2ml Vial) 25 mcg PRN Q5MIN PRN IV MILD PAIN 1-3; Start 10/14/19 at 11:15; Stop 10/14/19 at 13:44; Status DC Fentanyl Citrate (Fentanyl 2ml Vial) 50 mcg PRN Q5MIN PRN IV MODERATE TO SEVERE PAIN Last administered on 10/14/19at 13:34; Start 10/14/19 at 11:15; Stop 10/14/19 at 13:44; Status DC Morphine Sulfate (Morphine Sulfate) 1 mg PRN Q10MIN PRN IV SEVERE PAIN 7-10 Last administered on 10/14/19at 14:32; Start 10/14/19 at 11:15; Stop 10/15/19 at 11:14; Status DC Ringer's Solution 1,000 ml @ 30 mls/hr Q24H IV ; Start 10/14/19 at 11:09; Stop 10/14/19 at 13:44; Status DC Hydromorphone HCl (Dilaudid) 0.5 mg PRN Q10MIN PRN IV SEV PAIN, Second choice; Start 10/14/19 at 11:15; Stop 10/14/19 at 13:44; Status DC Prochlorperazine Edisylate (Compazine) 5 mg PACU PRN PRN IV NAUSEA, MRX1; Start 10/14/19 at 11:15; Stop 10/14/19 at 13:44; Status DC Fentanyl Citrate (Fentanyl 2ml Vial) 100 mcg STK-MED ONCE .ROUTE ; Start 10/14/19 at 11:37; Stop 10/14/19 at 11:37; Status DC Rocuronium [place] (Zemuron) 50 mg STK-MED ONCE .ROUTE ; Start 10/14/19 at 11:44; Stop 10/14/19 at 11:44; Status DC Bupivacaine HCl/ Epinephrine Bitart (Sensorcain-Epi 0.5%-1:702525 Mpf) 30 ml 1X ONCE INJ Last administered on 10/14/19at 12:37; Start 10/14/19 at 12:00; Stop 10/14/19 at 12:01; Status DC Phenylephrine HCl (PHENYLEPHRINE in 0.9% NACL PF) 1 mg STK-MED ONCE IV ; Start 10/14/19 at 12:27; Stop 10/14/19 at 12:27; Status DC Dexamethasone Sodium Phosphate (Decadron) 4 mg STK-MED ONCE .ROUTE ; Start 10/14/19 at 12:27; Stop 10/14/19 at 12:28; Status DC Ondansetron HCl (Zofran) 4 mg STK-MED ONCE .ROUTE ; Start 10/14/19 at 12:27; Stop 10/14/19 at 12:28; Status DC Propofol 20 ml @ As Directed STK-MED ONCE IV ; Start 10/14/19 at 12:27; Stop 10/14/19 at 12:28; Status DC Lidocaine HCl (Lidocaine Pf 2% Vial) 5 ml STK-MED ONCE .ROUTE ; Start 10/14/19 at 12:27; Stop 10/14/19 at 12:28; Status DC Fentanyl Citrate (Fentanyl 2ml Vial) 100 mcg STK-MED ONCE .ROUTE ; Start 10/14/19 at 12:49; Stop 10/14/19 at 12:49; Status DC Glycopyrrolate (Robinul) 1 mg STK-MED ONCE .ROUTE ; Start 10/14/19 at 13:02; Stop 10/14/19 at 13:02; Status DC Neostigmine Methylsulfate (Neostigmine Methylsulfate) 5 mg STK-MED ONCE .ROUTE ; Start 10/14/19 at 13:02; Stop 10/14/19 at 13:02; Status DC Enoxaparin Sodium (Lovenox 40mg Syringe) 40 mg Q24H SQ ; Start 10/14/19 at 13:30; Status UNV Sodium Chloride (Normal Saline Flush) 3 ml QSHIFT PRN IV AFTER MEDS AND BLOOD DRAWS; Start 10/14/19 at 13:30 Ringer's Solution 1,000 ml @ 100 mls/hr Q10H IV ; Start 10/14/19 at 13:25; Stop 10/15/19 at 07:42; Status DC Acetaminophen/ Hydrocodone Bitart (Lortab 5/325) 1 tab PRN Q4HRS PRN PO MILD PAIN 1-3 Last administered on 10/15/19at 11:45; Start 10/14/19 at 13:30 Naloxone HCl (Narcan) 0.4 mg PRN Q2MIN PRN IV SEE INSTRUCTIONS; Start 10/14/19 at 13:30 Sodium Chloride 1,000 ml @ 25 mls/hr Q24H IV ; Start 10/14/19 at 13:25 Morphine Sulfate (Morphine Sulfate) 1 mg PRN Q1HR PRN IV PAIN; Start 10/14/19 at 13:30 Ondansetron HCl (Zofran) 4 mg PRN Q6HRS PRN IVP NAUESA, 1ST CHOICE; Start 10/14/19 at 13:30 Active Scripts Active Reported Effexor Xr (Venlafaxine Hcl) 75 Mg Cap.er.24h 1 Cap PO DAILY Vitals/I & O Vital Sign - Last 24 Hours 10/14/19 10/14/19 10/14/19 10/14/19 13:16 13:16 13:30 13:34 Temp 98.1 98.1 Pulse 97 92 Resp 18 18 18 B/P (MAP) 138/71 120/60 Pulse Ox 98 98 98 O2 Delivery Simple Mask Mask Simple Mask Simple Mask O2 Flow Rate 10 10 10 10.0 10/14/19 10/14/19 10/14/19 10/14/19 13:45 13:50 14:32 15:00 Temp 98.0 98.0 Pulse 100 96 Resp 18 18 18 B/P (MAP) 99/54 96/54 (68) Pulse Ox 95 98 O2 Delivery Simple Mask Room Air Room Air O2 Flow Rate 10 10/14/19 10/14/19 10/14/19 10/14/19 15:02 15:25 15:28 15:43 Pulse 96 92 94 Resp 18 16 B/P (MAP) 96/54 (68) 102/57 (72) 94/59 (71) Pulse Ox 87 97 90 10/14/19 10/14/19 10/14/19 10/14/19 15:58 16:13 16:31 16:34 Pulse 89 96 88 86 B/P (MAP) 96/60 (72) 92/54 (67) 100/56 (71) 94/60 (71) Pulse Ox 90 93 93 93 10/14/19 10/14/19 10/14/19 10/14/19 19:00 20:00 20:38 21:38 Temp 98.3 98.3 Pulse 94 Resp 18 B/P (MAP) 99/59 (72) Pulse Ox 95 93 93 O2 Delivery Room Air Room Air Room Air Room Air 10/14/19 10/15/19 10/15/19 10/15/19 23:00 03:00 06:00 07:00 Temp 97.3 98.1 97.3 98.1 Pulse 81 81 Resp 18 18 18 B/P (MAP) 90/55 (67) 95/56 (69) Pulse Ox 93 95 95 O2 Delivery Room Air Room Air Room Air 10/15/19 10/15/19 10/15/19 07:00 11:00 11:45 Temp 98.5 98.2 98.5 98.2 Pulse 88 84 Resp 18 18 B/P (MAP) 84/48 (60) 96/52 (67) Pulse Ox 95 98 O2 Delivery Room Air Room Air Room Air Intake and Output 10/14/19 10/14/19 10/15/19 15:00 23:00 07:00 Intake Total 850 ml 240 ml Output Total 60 ml 1 ml Balance 790 ml 239 ml Hemodynamically unstable?: No Is patient in severe pain?: Yes Justification for admission: acute appy and sepsis Is NPO status required?: Yes AKIN PICKETT MD Oct 15, 2019 13:07
--- NOTE | 2019-10-15 14:53 | NUR ---
SW following for discharge planning. Chart reviewed, discussed with RN. Pt had surgery yesterday, not ready to discharge today. Plan is home with self care when ready. SW will continue to follow should any discharge plans arise.
[2019-10-15 15:00] VITALS: BP 106/62
[2019-10-15] MEDS: DOCUSATE SODIUM 100 MG CAPSULE. PO SCH (16:06)
[2019-10-15 19:00] VITALS: BP 111/72
[2019-10-15] MEDS: LACTOBACILLUS RHAMNOSUS GG 1 CAPSULE. PO SCH (20:28)
[2019-10-15 23:00] VITALS: BP 110/65
[2019-10-15] MEDS: ACETAMINOPHEN 325 MG TABLET. PO PRN (23:08)
[2019-10-16] MEDS: PIPERACILLIN/TAZOBACTAM 3.375 GM in IV NORMAL SALINE 50ML 50 ML IV SCH ×5 (01:00→23:17)
[2019-10-16] MEDS: HYDROcodone/APAP 5/325MG 1 TAB TABLET PO PRN ×4 (01:00→23:24)
[2019-10-16 03:00] VITALS: BP 101/58
[2019-10-16] MEDS: IV NORMAL SALINE 1000ML BAG 1,000 ML IV SCH ×2 (05:52→09:47)
[2019-10-16 06:26] LABS: BASO % 0 % (0-3); EOS # 0.1 x10^3/uL (0.0-0.7); EOS % 1 % (0-3); HEMATOCRIT 29.8 % (36.0-47.0); HEMOGLOBIN 10.2 g/dL (12.0-15.5); LYMPH # 0.9 x10^3/uL (1.0-4.8); LYMPH % 12 % (24-48); MEAN CORPUSCULAR HEMOGLOBIN 33 pg (25-35); MEAN CORPUSCULAR HGB CONC 34 g/dL (31-37); MEAN CORPUSCULAR VOLUME 97 fL (79-100); MONO # 0.3 x10^3/uL (0.0-1.1); MONO % 4 % (0-9); NEUT # 6.5 x10^3/uL (1.8-7.7); NEUT % 84 % (31-73); PLATELET COUNT 135 x10^3/uL (140-400); RED BLOOD COUNT 3.09 x10^6/uL (3.50-5.40); RED CELL DISTRIBUTION WIDTH 13.6 % (11.5-14.5); WHITE BLOOD COUNT 7.8 x10^3/uL (4.0-11.0)
[2019-10-16 07:00] VITALS: BP 108/62
[2019-10-16] MEDS: LACTOBACILLUS RHAMNOSUS GG 1 CAPSULE. PO SCH ×2 (08:26→19:33)
[2019-10-16] MEDS: VENLAFAXINE XR 37.5 MG CAP.ER.24H. PO SCH (08:26)
[2019-10-16] MEDS: DOCUSATE SODIUM 100 MG CAPSULE. PO SCH (08:26)
[2019-10-16] MEDS: POLYETHYLENE GLYCOL 3350 17 GM PACKET. PO SCH (08:26)
[2019-10-16] MEDS: ENOXAPARIN 40 MG/0.4 ML SYRINGE. SQ SCH (08:27)
--- NOTE | 2019-10-16 09:49 | PDOC ---
SURGICAL PROGRESS NOTE Subjective Pt with c/o mild incisional pain, mild fever last night, mira PO Vital Signs Vital Signs Date Time Temp Pulse Resp B/P (MAP) Pulse Ox O2 Delivery O2 Flow Rate FiO2 10/16/19 09:47 94 Room Air 10/16/19 07:00 98.3 84 18 108/62 (77) 2.0 98.3 I&O Intake and Output 10/16/19 07:00 Intake Total 2900 ml Output Total 1 ml Balance 2899 ml Intake Oral 1700 ml IV Total 1200 ml Output Urine Total 1 ml # Voids 5 # Bowel Movements 1 General: Alert, Oriented X3, Cooperative, No acute distress Abdomen: Soft, Other (mild TTP diffusely) Labs Laboratory Tests Test 10/14/19 11:00 10/15/19 04:10 10/16/19 05:21 Urine Test Negative (NEG) White Blood Count 9.6 x10^3/uL (4.0-11.0) 7.8 x10^3/uL (4.0-11.0) Red Blood Count 3.73 x10^6/uL (3.50-5.40) 3.09 x10^6/uL (3.50-5.40) Hemoglobin 12.3 g/dL (12.0-15.5) 10.2 g/dL (12.0-15.5) Hematocrit 36.3 % (36.0-47.0) 29.8 % (36.0-47.0) Mean Corpuscular Volume 97 fL (79-100) 97 fL (79-100) Mean Corpuscular Hemoglobin 33 pg (25-35) 33 pg (25-35) Mean Corpuscular Hemoglobin Concent 34 g/dL (31-37) 34 g/dL (31-37) Red Cell Distribution Width 13.8 % (11.5-14.5) 13.6 % (11.5-14.5) Platelet Count 152 x10^3/uL (140-400) 135 x10^3/uL (140-400) Neutrophils (%) (Auto) 85 % (31-73) 84 % (31-73) Lymphocytes (%) (Auto) 11 % (24-48) 12 % (24-48) Monocytes (%) (Auto) 4 % (0-9) 4 % (0-9) Eosinophils (%) (Auto) 0 % (0-3) 1 % (0-3) Basophils (%) (Auto) 0 % (0-3) 0 % (0-3) Neutrophils # (Auto) 8.1 x10^3/uL (1.8-7.7) 6.5 x10^3/uL (1.8-7.7) Lymphocytes # (Auto) 1.0 x10^3/uL (1.0-4.8) 0.9 x10^3/uL (1.0-4.8) Monocytes # (Auto) 0.4 x10^3/uL (0.0-1.1) 0.3 x10^3/uL (0.0-1.1) Eosinophils # (Auto) 0.0 x10^3/uL (0.0-0.7) 0.1 x10^3/uL (0.0-0.7) Basophils # (Auto) 0.0 x10^3/uL (0.0-0.2) 0.0 x10^3/uL (0.0-0.2) Sodium Level 140 mmol/L (136-145) Potassium Level 3.9 mmol/L (3.5-5.1) Chloride Level 107 mmol/L (98-107) Carbon Dioxide Level 22 mmol/L (21-32) Anion Gap 11 (6-14) Blood Urea Nitrogen 11 mg/dL (7-20) Creatinine 0.7 mg/dL (0.6-1.0) Estimated GFR (Cockcroft-Gault) 90.9 Glucose Level 109 mg/dL (70-99) Calcium Level 7.9 mg/dL (8.5-10.1) Laboratory Tests Test 10/16/19 05:21 White Blood Count 7.8 x10^3/uL (4.0-11.0) Red Blood Count 3.09 x10^6/uL (3.50-5.40) Hemoglobin 10.2 g/dL (12.0-15.5) Hematocrit 29.8 % (36.0-47.0) Mean Corpuscular Volume 97 fL (79-100) Mean Corpuscular Hemoglobin 33 pg (25-35) Mean Corpuscular Hemoglobin Concent 34 g/dL (31-37) Red Cell Distribution Width 13.6 % (11.5-14.5) Platelet Count 135 x10^3/uL (140-400) Neutrophils (%) (Auto) 84 % (31-73) Lymphocytes (%) (Auto) 12 % (24-48) Monocytes (%) (Auto) 4 % (0-9) Eosinophils (%) (Auto) 1 % (0-3) Basophils (%) (Auto) 0 % (0-3) Neutrophils # (Auto) 6.5 x10^3/uL (1.8-7.7) Lymphocytes # (Auto) 0.9 x10^3/uL (1.0-4.8) Monocytes # (Auto) 0.3 x10^3/uL (0.0-1.1) Eosinophils # (Auto) 0.1 x10^3/uL (0.0-0.7) Basophils # (Auto) 0.0 x10^3/uL (0.0-0.2) Problem List s/p lap appendectomy given pain and mild fever last night, favor continued hospitalization for IV abx and evaluation of probable abscess formation. LINA WILLIAM MD Oct 16, 2019 09:49
[2019-10-16 11:00] VITALS: BP 101/57
--- NOTE | 2019-10-16 11:05 | NUR ---
SW following. Discussed with RN, pt not discharging today, surgeon wants to monitor still. Possible dc tomorrow (10/17/19) or Saturday (10/18/19). RN advised no SW needs.
[2019-10-16] MEDS: ACETAMINOPHEN 325 MG TABLET. PO PRN ×2 (12:11→23:17)
--- NOTE | 2019-10-16 13:09 | PDOC ---
[facility] [facility] PROGRESS NOTE Chief Complaint Chief Complaint Post-op day 2 laparoscopic appendectomy Sepsis, resolved Depression History of Present Illness History of Present Illness 10/16/19 Pt seen and examined Pt reports she is feeling much better today JEREMIE pt about care JEREMIE RN about pt Reviewed pt's chart Vitals/I&O Vitals/I&O: Vital Signs Date Time Temp Pulse Resp B/P (MAP) Pulse Ox O2 Delivery O2 Flow Rate FiO2 10/16/19 11:00 98.3 81 18 101/57 (72) 93 Nasal Cannula 2.0 98.3 I & O 10/15/19 10/15/19 10/16/19 15:00 23:00 07:00 Intake Total 1950 ml 950 ml Output Total 1 ml Balance 1949 ml 950 ml Physical Exam General: Alert, Oriented X3, Cooperative, No acute distress Heart: Regular rate, Normal S1, Normal S2 Lungs: Clear Abdomen: Normal bowel sounds, Soft, Other (Clean, dry, intact dressing at trochanter sites) Extremities: No clubbing, No cyanosis Skin: No rashes, No breakdown Labs Labs: Laboratory Tests Test 10/16/19 05:21 White Blood Count 7.8 x10^3/uL (4.0-11.0) Red Blood Count 3.09 x10^6/uL (3.50-5.40) Hemoglobin 10.2 g/dL (12.0-15.5) Hematocrit 29.8 % (36.0-47.0) Mean Corpuscular Volume 97 fL (79-100) Mean Corpuscular Hemoglobin 33 pg (25-35) Mean Corpuscular Hemoglobin Concent 34 g/dL (31-37) Red Cell Distribution Width 13.6 % (11.5-14.5) Platelet Count 135 x10^3/uL (140-400) Neutrophils (%) (Auto) 84 % (31-73) Lymphocytes (%) (Auto) 12 % (24-48) Monocytes (%) (Auto) 4 % (0-9) Eosinophils (%) (Auto) 1 % (0-3) Basophils (%) (Auto) 0 % (0-3) Neutrophils # (Auto) 6.5 x10^3/uL (1.8-7.7) Lymphocytes # (Auto) 0.9 x10^3/uL (1.0-4.8) Monocytes # (Auto) 0.3 x10^3/uL (0.0-1.1) Eosinophils # (Auto) 0.1 x10^3/uL (0.0-0.7) Basophils # (Auto) 0.0 x10^3/uL (0.0-0.2) Review of Systems Review of Systems: No c/o of dizziness No c/o CP Assessment and Plan Assessmemt and Plan Assessment Post-op day 2 laparoscopic appendectomy Sepsis, resolved Depression Plan Continue IV Zosyn Wound care IVF DVT prophylaxis PT/OT Labs Home meds Full code Appreciate surgical input Discharge when okay with surgery Comment Review of Relevant I have reviewed the following items marquis (where applicable) has been applied. Medications: Current Medications Medications (Trade) Dose Ordered Sig/Danilo Route PRN Reason Start Time Stop Time Status Last Admin Dose Admin Polyethylene Glycol (miraLAX PACKET) 17 gm DAILY PO 10/16/19 09:00 10/16/19 08:26 Docusate Sodium (Colace) 100 mg DAILY PO 10/15/19 14:00 10/16/19 08:26 Lactobacillus Rhamnosus (Culturelle) 1 cap BID PO 10/15/19 21:00 10/16/19 08:26 Hemodynamically unstable?: No Is patient in severe pain?: Yes Justification for admission: acute appy and sepsis Is NPO status required?: Yes NICOLE SINGH III DO Oct 16, 2019 13:08
[2019-10-16 15:00] VITALS: BP 113/64
--- NOTE | 2019-10-16 18:06 | PATHOLOGY ---
[facility] Accession Number: [id number] . 01 Material submitted: . appendix - APPENDIX . 01 Clinical history: . Appendicitis . 02 Diagnosis: Appendix, appendectomy: - Fecalith. - Acute necrotizing appendicitis with focal perforation and serosal exudate. (JPM:franklin; 10/16/2019) S 10/16/2019 1422 Local . 02 Comment: There is no evidence of malignancy. . 02 Electronically signed: . Nathan Baires MD, Pathologist NPI- [id number] . 01 Gross description: . Received in formalin labeled "Kelsi Pompa, appendix," is an appendix measuring 5.3 cm in length by up to 0.8 cm in diameter with a moderate amount of attached yellow-brown mesoappendix measuring up to 2.0 cm in thickness. The appendiceal serosa is smooth and pale hogan to shaggy and light hogan to hemorrhagic in appearance, extensively covered in adhesions/exudate. A possible perforation is noted the distal tip, measuring 0.4 x 0.2 cm (inked red) that extends to within 4.3 cm of the proximal margin. The proximal margin is closed with a linear staple line; this area is inked black. Serial sectioning reveals a granular, dark brown fecalith measuring 0.8 cm in maximum dimension that is located 3.1 cm distal to the proximal margin. The lumen is pinpoint to dilated in appearance, measuring up to 0.5 cm in diameter in the area of the fecalith. Sectioning through the mesoappendix reveals lobular, pale yellow to hemorrhagic cut surfaces. The proximal margin and bisected distal tip are submitted in cassette A1. Additional apprenticeship training representative sections are submitted in cassette A2. The perforated area is submitted in cassette A3. (DAC; 10/15/2019) XDC/XDC 10/15/2019 1048 Local . 02 Pathologist provided ICD-10: K56.41, K35.80 . 02 CPT . 611029 Specimen Comment: A courtesy copy of this report has been sent to [phone] Specimen Comment: [phone], Specimen Comment: Report sent to , and Performed at: 01 [facility] [address] [place] [address] [address], [place] [id number] MD Trevor Gamble MD Phone: [phone] Performed at: 02 [facility] [address] [place] [id number] MD Nathan Baires MD Phone: [phone]
[2019-10-16 19:00] VITALS: BP 142/76
[2019-10-16 23:04] VITALS: BP 128/76
[2019-10-17 03:07] VITALS: BP 105/57
[2019-10-17] MEDS: PIPERACILLIN/TAZOBACTAM 3.375 GM in IV NORMAL SALINE 50ML 50 ML IV SCH ×4 (05:21→23:20)
[2019-10-17 07:00] VITALS: BP 101/62
[2019-10-17 07:05] LABS: CALCIUM 7.8 mg/dL (8.5-10.1); CREATININE 0.5 mg/dL (0.6-1.0)
[2019-10-17 07:19] LABS: BASO % 1 % (0-3); EOS # 0.1 x10^3/uL (0.0-0.7); EOS % 2 % (0-3); HEMATOCRIT 27.4 % (36.0-47.0); HEMOGLOBIN 9.5 g/dL (12.0-15.5); LYMPH % 15 % (24-48); MEAN CORPUSCULAR HEMOGLOBIN 33 pg (25-35); MEAN CORPUSCULAR HGB CONC 35 g/dL (31-37); MEAN CORPUSCULAR VOLUME 96 fL (79-100); MONO # 0.5 x10^3/uL (0.0-1.1); MONO % 7 % (0-9); NEUT # 4.7 x10^3/uL (1.8-7.7); NEUT % 75 % (31-73); PLATELET COUNT 165 x10^3/uL (140-400); RED BLOOD COUNT 2.85 x10^6/uL (3.50-5.40); RED CELL DISTRIBUTION WIDTH 13.6 % (11.5-14.5); WHITE BLOOD COUNT 6.2 x10^3/uL (4.0-11.0)
[2019-10-17] MEDS: LACTOBACILLUS RHAMNOSUS GG 1 CAPSULE. PO SCH ×2 (07:57→20:02)
[2019-10-17] MEDS: VENLAFAXINE XR 37.5 MG CAP.ER.24H. PO SCH (07:57)
[2019-10-17] MEDS: ACETAMINOPHEN 325 MG TABLET. PO PRN (07:57)
[2019-10-17] MEDS: DOCUSATE SODIUM 100 MG CAPSULE. PO SCH (07:57)
[2019-10-17] MEDS: ENOXAPARIN 40 MG/0.4 ML SYRINGE. SQ SCH (07:59)
[2019-10-17] MEDS: POLYETHYLENE GLYCOL 3350 17 GM PACKET. PO SCH (08:00)
[2019-10-17] MEDS ORDERED: POTASSIUM CHLORIDE 20 MEQ TABLET.ER. PO ONE (09:30)
--- NOTE | 2019-10-17 09:36 | PDOC ---
SURGICAL PROGRESS NOTE Subjective Pt with c/o RLQ pain, similar to preop, also with c/o vaginal bleeding (previous ablation). No N/V. Low grade fevers Vital Signs Vital Signs Date Time Temp Pulse Resp B/P (MAP) Pulse Ox O2 Delivery O2 Flow Rate FiO2 10/17/19 07:09 Room Air 10/17/19 07:00 98.1 71 18 101/62 (75) 94 98.1 10/16/19 11:00 2.0 I&O Intake and Output 10/17/19 07:00 Intake Total 120 ml Balance 120 ml IV Total 120 ml # Voids 4 General: Alert, Oriented X3, Cooperative, No acute distress Abdomen: Soft, Other (TTP RLQ) Labs Laboratory Tests Test 10/16/19 05:21 10/17/19 04:45 10/17/19 04:50 White Blood Count 7.8 x10^3/uL (4.0-11.0) 6.2 x10^3/uL (4.0-11.0) Red Blood Count 3.09 x10^6/uL (3.50-5.40) 2.85 x10^6/uL (3.50-5.40) Hemoglobin 10.2 g/dL (12.0-15.5) 9.5 g/dL (12.0-15.5) Hematocrit 29.8 % (36.0-47.0) 27.4 % (36.0-47.0) Mean Corpuscular Volume 97 fL (79-100) 96 fL (79-100) Mean Corpuscular Hemoglobin 33 pg (25-35) 33 pg (25-35) Mean Corpuscular Hemoglobin Concent 34 g/dL (31-37) 35 g/dL (31-37) Red Cell Distribution Width 13.6 % (11.5-14.5) 13.6 % (11.5-14.5) Platelet Count 135 x10^3/uL (140-400) 165 x10^3/uL (140-400) Neutrophils (%) (Auto) 84 % (31-73) 75 % (31-73) Lymphocytes (%) (Auto) 12 % (24-48) 15 % (24-48) Monocytes (%) (Auto) 4 % (0-9) 7 % (0-9) Eosinophils (%) (Auto) 1 % (0-3) 2 % (0-3) Basophils (%) (Auto) 0 % (0-3) 1 % (0-3) Neutrophils # (Auto) 6.5 x10^3/uL (1.8-7.7) 4.7 x10^3/uL (1.8-7.7) Lymphocytes # (Auto) 0.9 x10^3/uL (1.0-4.8) 1.0 x10^3/uL (1.0-4.8) Monocytes # (Auto) 0.3 x10^3/uL (0.0-1.1) 0.5 x10^3/uL (0.0-1.1) Eosinophils # (Auto) 0.1 x10^3/uL (0.0-0.7) 0.1 x10^3/uL (0.0-0.7) Basophils # (Auto) 0.0 x10^3/uL (0.0-0.2) 0.0 x10^3/uL (0.0-0.2) Sodium Level 141 mmol/L (136-145) Potassium Level 3.0 mmol/L (3.5-5.1) Chloride Level 106 mmol/L (98-107) Carbon Dioxide Level 25 mmol/L (21-32) Anion Gap 10 (6-14) Blood Urea Nitrogen 4 mg/dL (7-20) Creatinine 0.5 mg/dL (0.6-1.0) Estimated GFR (Cockcroft-Gault) 134.0 Glucose Level 85 mg/dL (70-99) Calcium Level 7.8 mg/dL (8.5-10.1) Laboratory Tests Test 10/17/19 04:45 10/17/19 04:50 White Blood Count 6.2 x10^3/uL (4.0-11.0) Red Blood Count 2.85 x10^6/uL (3.50-5.40) Hemoglobin 9.5 g/dL (12.0-15.5) Hematocrit 27.4 % (36.0-47.0) Mean Corpuscular Volume 96 fL (79-100) Mean Corpuscular Hemoglobin 33 pg (25-35) Mean Corpuscular Hemoglobin Concent 35 g/dL (31-37) Red Cell Distribution Width 13.6 % (11.5-14.5) Platelet Count 165 x10^3/uL (140-400) Neutrophils (%) (Auto) 75 % (31-73) Lymphocytes (%) (Auto) 15 % (24-48) Monocytes (%) (Auto) 7 % (0-9) Eosinophils (%) (Auto) 2 % (0-3) Basophils (%) (Auto) 1 % (0-3) Neutrophils # (Auto) 4.7 x10^3/uL (1.8-7.7) Lymphocytes # (Auto) 1.0 x10^3/uL (1.0-4.8) Monocytes # (Auto) 0.5 x10^3/uL (0.0-1.1) Eosinophils # (Auto) 0.1 x10^3/uL (0.0-0.7) Basophils # (Auto) 0.0 x10^3/uL (0.0-0.2) Sodium Level 141 mmol/L (136-145) Potassium Level 3.0 mmol/L (3.5-5.1) Chloride Level 106 mmol/L (98-107) Carbon Dioxide Level 25 mmol/L (21-32) Anion Gap 10 (6-14) Blood Urea Nitrogen 4 mg/dL (7-20) Creatinine 0.5 mg/dL (0.6-1.0) Estimated GFR (Cockcroft-Gault) 134.0 Glucose Level 85 mg/dL (70-99) Calcium Level 7.8 mg/dL (8.5-10.1) Problem List s/p lap appendectomy for perforated appendicitis high likely to have abscess, will check CT will ask gynecology to evaluate vaginal bleeding LINA WILLIAM MD Oct 17, 2019 09:36
[2019-10-17] MEDS ORDERED: CONTRAST GIVEN. MC PRN (10:30)
[2019-10-17] MEDS ORDERED: IOHEXOL 240 MG/ML 50ML VIAL. PO ONE (10:30)
[2019-10-17] MEDS ORDERED: IOHEXOL 300 MG/ML 100ML VIAL. IV ONE (10:30)
[2019-10-17 11:06] VITALS: BP 128/68
--- NOTE | 2019-10-17 13:23 | PDOC ---
PROGRESS NOTES Chief Complaint Chief Complaint acute abdominal pain acute perforated appendicitis - Post-op day 2 laparoscopic appendectomy sepsis, flagyl and zosyn, IV fluid will bolus IV saline Depression History of Present Illness History of Present Illness Ms Pompa is a 44yo F w/ PMHx PCOS, depression who presented with abdominal pain since 10/11/19, came to [place] on 10/13, found with appendicitis with likely abscess, s/p lap appy on 10/14 with necrosis. Still with abdominal pain today, c/o vaginal discharge and bleeding. Mild SOB, No CP. CT scan completed. 10/16/19 Pt seen and examined Pt reports she is feeling much better today DW pt about care DW RN about pt Reviewed pt's chart Vitals Vitals Vital Signs Date Time Temp Pulse Resp B/P (MAP) Pulse Ox O2 Delivery O2 Flow Rate FiO2 10/17/19 11:06 98.0 83 18 128/68 (88) 94 Room Air 98.0 10/16/19 11:00 2.0 Physical Exam General: Alert, Oriented X3, Cooperative, No acute distress Heart: Regular rate, Normal S1, Normal S2 Lungs: Clear Abdomen: Soft, Other (TTP RLQ) Extremities: No clubbing, No cyanosis Skin: No rashes, No breakdown Labs LABS Laboratory Tests Test 10/17/19 04:45 10/17/19 04:50 White Blood Count 6.2 x10^3/uL (4.0-11.0) Red Blood Count 2.85 x10^6/uL (3.50-5.40) Hemoglobin 9.5 g/dL (12.0-15.5) Hematocrit 27.4 % (36.0-47.0) Mean Corpuscular Volume 96 fL (79-100) Mean Corpuscular Hemoglobin 33 pg (25-35) Mean Corpuscular Hemoglobin Concent 35 g/dL (31-37) Red Cell Distribution Width 13.6 % (11.5-14.5) Platelet Count 165 x10^3/uL (140-400) Neutrophils (%) (Auto) 75 % (31-73) Lymphocytes (%) (Auto) 15 % (24-48) Monocytes (%) (Auto) 7 % (0-9) Eosinophils (%) (Auto) 2 % (0-3) Basophils (%) (Auto) 1 % (0-3) Neutrophils # (Auto) 4.7 x10^3/uL (1.8-7.7) Lymphocytes # (Auto) 1.0 x10^3/uL (1.0-4.8) Monocytes # (Auto) 0.5 x10^3/uL (0.0-1.1) Eosinophils # (Auto) 0.1 x10^3/uL (0.0-0.7) Basophils # (Auto) 0.0 x10^3/uL (0.0-0.2) Sodium Level 141 mmol/L (136-145) Potassium Level 3.0 mmol/L (3.5-5.1) Chloride Level 106 mmol/L (98-107) Carbon Dioxide Level 25 mmol/L (21-32) Anion Gap 10 (6-14) Blood Urea Nitrogen 4 mg/dL (7-20) Creatinine 0.5 mg/dL (0.6-1.0) Estimated GFR (Cockcroft-Gault) 134.0 Glucose Level 85 mg/dL (70-99) Calcium Level 7.8 mg/dL (8.5-10.1) Magnesium Level 1.9 mg/dL (1.8-2.4) Comment Review of Relevant I have reviewed the following items marquis (where applicable) has been applied. Labs Laboratory Tests Test 10/16/19 05:21 10/17/19 04:45 10/17/19 04:50 White Blood Count 7.8 x10^3/uL (4.0-11.0) 6.2 x10^3/uL (4.0-11.0) Red Blood Count 3.09 x10^6/uL (3.50-5.40) 2.85 x10^6/uL (3.50-5.40) Hemoglobin 10.2 g/dL (12.0-15.5) 9.5 g/dL (12.0-15.5) Hematocrit 29.8 % (36.0-47.0) 27.4 % (36.0-47.0) Mean Corpuscular Volume 97 fL (79-100) 96 fL (79-100) Mean Corpuscular Hemoglobin 33 pg (25-35) 33 pg (25-35) Mean Corpuscular Hemoglobin Concent 34 g/dL (31-37) 35 g/dL (31-37) Red Cell Distribution Width 13.6 % (11.5-14.5) 13.6 % (11.5-14.5) Platelet Count 135 x10^3/uL (140-400) 165 x10^3/uL (140-400) Neutrophils (%) (Auto) 84 % (31-73) 75 % (31-73) Lymphocytes (%) (Auto) 12 % (24-48) 15 % (24-48) Monocytes (%) (Auto) 4 % (0-9) 7 % (0-9) Eosinophils (%) (Auto) 1 % (0-3) 2 % (0-3) Basophils (%) (Auto) 0 % (0-3) 1 % (0-3) Neutrophils # (Auto) 6.5 x10^3/uL (1.8-7.7) 4.7 x10^3/uL (1.8-7.7) Lymphocytes # (Auto) 0.9 x10^3/uL (1.0-4.8) 1.0 x10^3/uL (1.0-4.8) Monocytes # (Auto) 0.3 x10^3/uL (0.0-1.1) 0.5 x10^3/uL (0.0-1.1) Eosinophils # (Auto) 0.1 x10^3/uL (0.0-0.7) 0.1 x10^3/uL (0.0-0.7) Basophils # (Auto) 0.0 x10^3/uL (0.0-0.2) 0.0 x10^3/uL (0.0-0.2) Sodium Level 141 mmol/L (136-145) Potassium Level 3.0 mmol/L (3.5-5.1) Chloride Level 106 mmol/L (98-107) Carbon Dioxide Level 25 mmol/L (21-32) Anion Gap 10 (6-14) Blood Urea Nitrogen 4 mg/dL (7-20) Creatinine 0.5 mg/dL (0.6-1.0) Estimated GFR (Cockcroft-Gault) 134.0 Glucose Level 85 mg/dL (70-99) Calcium Level 7.8 mg/dL (8.5-10.1) Magnesium Level 1.9 mg/dL (1.8-2.4) Laboratory Tests Test 10/17/19 04:45 10/17/19 04:50 White Blood Count 6.2 x10^3/uL (4.0-11.0) Red Blood Count 2.85 x10^6/uL (3.50-5.40) Hemoglobin 9.5 g/dL (12.0-15.5) Hematocrit 27.4 % (36.0-47.0) Mean Corpuscular Volume 96 fL (79-100) Mean Corpuscular Hemoglobin 33 pg (25-35) Mean Corpuscular Hemoglobin Concent 35 g/dL (31-37) Red Cell Distribution Width 13.6 % (11.5-14.5) Platelet Count 165 x10^3/uL (140-400) Neutrophils (%) (Auto) 75 % (31-73) Lymphocytes (%) (Auto) 15 % (24-48) Monocytes (%) (Auto) 7 % (0-9) Eosinophils (%) (Auto) 2 % (0-3) Basophils (%) (Auto) 1 % (0-3) Neutrophils # (Auto) 4.7 x10^3/uL (1.8-7.7) Lymphocytes # (Auto) 1.0 x10^3/uL (1.0-4.8) Monocytes # (Auto) 0.5 x10^3/uL (0.0-1.1) Eosinophils # (Auto) 0.1 x10^3/uL (0.0-0.7) Basophils # (Auto) 0.0 x10^3/uL (0.0-0.2) Sodium Level 141 mmol/L (136-145) Potassium Level 3.0 mmol/L (3.5-5.1) Chloride Level 106 mmol/L (98-107) Carbon Dioxide Level 25 mmol/L (21-32) Anion Gap 10 (6-14) Blood Urea Nitrogen 4 mg/dL (7-20) Creatinine 0.5 mg/dL (0.6-1.0) Estimated GFR (Cockcroft-Gault) 134.0 Glucose Level 85 mg/dL (70-99) Calcium Level 7.8 mg/dL (8.5-10.1) Magnesium Level 1.9 mg/dL (1.8-2.4) Medications Current Medications Sodium Chloride 1,000 ml @ 100 mls/hr Q10H IV Last administered on 10/16/19at 05:52; Start 10/14/19 at 03:00; Stop 10/16/19 at 13:12; Status DC Ondansetron HCl (Zofran) 4 mg PRN Q4HRS PRN IV NAUSEA/VOMITING 1ST CHOICE; Start 10/14/19 at 02:30; Stop 10/14/19 at 13:44; Status DC Zolpidem Tartrate (Ambien) 5 mg PRN QHS PRN PO INSOMNIA; Start 10/14/19 at 02:30 Acetaminophen (Tylenol) 650 mg PRN Q4HRS PRN PO TEMP OVER 100.4F OR MILD PAIN Last administered on 10/17/19at 07:57; Start 10/14/19 at 02:30 Diphenhydramine HCl (Benadryl) 25 mg PRN Q4HRS PRN IVP ITCHING; Start 10/14/19 at 02:30 Enoxaparin Sodium (Lovenox 40mg Syringe) 40 mg DAILY SQ Last administered on 10/17/19at 07:59; Start 10/14/19 at 09:00 Piperacillin Sod/ Tazobactam Sod 3.375 gm/Sodium Chloride 50 ml @ 100 mls/hr Q6HRS IV Last administered on 10/17/19at 11:08; Start 10/14/19 at 06:00 Metronidazole 100 ml @ 100 mls/hr Q8HRS IV Last administered on 10/14/19at 14:33; Start 10/14/19 at 06:00; Stop 10/14/19 at 17:01; Status DC Ketorolac Tromethamine (Toradol 30mg Vial) 30 mg PRN Q6HRS PRN IVP MODERATE PAIN 4-6 Last administered on 10/14/19at 17:22; Start 10/14/19 at 02:30 Hydromorphone HCl (Dilaudid) 1 mg PRN Q4HRS PRN IV SEVERE PAIN 7-10 Last administered on 10/14/19at 07:36; Start 10/14/19 at 02:30 Venlafaxine HCl (Effexor Xr) 75 mg DAILY PO Last administered on 10/17/19at 07:57; Start 10/14/19 at 09:00 Sodium Chloride 1,000 ml @ 1,000 mls/hr 1X ONCE IV ; Start 10/14/19 at 09:00; Stop 10/14/19 at 09:59; Status DC Ondansetron HCl (Zofran) 4 mg PRN Q6HRS PRN IV NAUSEA/VOMITING; Start 10/14/19 at 11:15; Stop 10/14/19 at 13:44; Status DC Fentanyl Citrate (Fentanyl 2ml Vial) 25 mcg PRN Q5MIN PRN IV MILD PAIN 1-3; Start 10/14/19 at 11:15; Stop 10/14/19 at 13:44; Status DC Fentanyl Citrate (Fentanyl 2ml Vial) 50 mcg PRN Q5MIN PRN IV MODERATE TO SEVERE PAIN Last administered on 10/14/19at 13:34; Start 10/14/19 at 11:15; Stop 10/14/19 at 13:44; Status DC Morphine Sulfate (Morphine Sulfate) 1 mg PRN Q10MIN PRN IV SEVERE PAIN 7-10 Last administered on 10/14/19at 14:32; Start 10/14/19 at 11:15; Stop 10/15/19 at 11:14; Status DC Ringer's Solution 1,000 ml @ 30 mls/hr Q24H IV ; Start 10/14/19 at 11:09; Stop 10/14/19 at 13:44; Status DC Hydromorphone HCl (Dilaudid) 0.5 mg PRN Q10MIN PRN IV SEV PAIN, Second choice; Start 10/14/19 at 11:15; Stop 10/14/19 at 13:44; Status DC Prochlorperazine Edisylate (Compazine) 5 mg PACU PRN PRN IV NAUSEA, MRX1; Start 10/14/19 at 11:15; Stop 10/14/19 at 13:44; Status DC Fentanyl Citrate (Fentanyl 2ml Vial) 100 mcg STK-MED ONCE .ROUTE ; Start 10/14/19 at 11:37; Stop 10/14/19 at 11:37; Status DC Rocuronium [place] (Zemuron) 50 mg STK-MED ONCE .ROUTE ; Start 10/14/19 at 11:44; Stop 10/14/19 at 11:44; Status DC Bupivacaine HCl/ Epinephrine Bitart (Sensorcain-Epi 0.5%-1:683202 Mpf) 30 ml 1X ONCE INJ Last administered on 10/14/19at 12:37; Start 10/14/19 at 12:00; Stop 10/14/19 at 12:01; Status DC Phenylephrine HCl (PHENYLEPHRINE in 0.9% NACL PF) 1 mg STK-MED ONCE IV ; Start 10/14/19 at 12:27; Stop 10/14/19 at 12:27; Status DC Dexamethasone Sodium Phosphate (Decadron) 4 mg STK-MED ONCE .ROUTE ; Start 10/14/19 at 12:27; Stop 10/14/19 at 12:28; Status DC Ondansetron HCl (Zofran) 4 mg STK-MED ONCE .ROUTE ; Start 10/14/19 at 12:27; Stop 10/14/19 at 12:28; Status DC Propofol 20 ml @ As Directed STK-MED ONCE IV ; Start 10/14/19 at 12:27; Stop 10/14/19 at 12:28; Status DC Lidocaine HCl (Lidocaine Pf 2% Vial) 5 ml STK-MED ONCE .ROUTE ; Start 10/14/19 at 12:27; Stop 10/14/19 at 12:28; Status DC Fentanyl Citrate (Fentanyl 2ml Vial) 100 mcg STK-MED ONCE .ROUTE ; Start 10/14/19 at 12:49; Stop 10/14/19 at 12:49; Status DC Glycopyrrolate (Robinul) 1 mg STK-MED ONCE .ROUTE ; Start 10/14/19 at 13:02; Stop 10/14/19 at 13:02; Status DC Neostigmine Methylsulfate (Neostigmine Methylsulfate) 5 mg STK-MED ONCE .ROUTE ; Start 10/14/19 at 13:02; Stop 10/14/19 at 13:02; Status DC Enoxaparin Sodium (Lovenox 40mg Syringe) 40 mg Q24H SQ ; Start 10/14/19 at 13:30; Status UNV Sodium Chloride (Normal Saline Flush) 3 ml QSHIFT PRN IV AFTER MEDS AND BLOOD DRAWS; Start 10/14/19 at 13:30 Ringer's Solution 1,000 ml @ 100 mls/hr Q10H IV ; Start 10/14/19 at 13:25; Stop 10/15/19 at 07:42; Status DC Acetaminophen/ Hydrocodone Bitart (Lortab 5/325) 1 tab PRN Q4HRS PRN PO MILD PAIN 1-3 Last administered on 10/16/19at 23:24; Start 10/14/19 at 13:30 Naloxone HCl (Narcan) 0.4 mg PRN Q2MIN PRN IV SEE INSTRUCTIONS; Start 10/14/19 at 13:30 Sodium Chloride 1,000 ml @ 25 mls/hr Q24H IV ; Start 10/14/19 at 13:25; Stop 10/17/19 at 10:58; Status DC Morphine Sulfate (Morphine Sulfate) 1 mg PRN Q1HR PRN IV PAIN; Start 10/14/19 at 13:30 Ondansetron HCl (Zofran) 4 mg PRN Q6HRS PRN IVP NAUESA, 1ST CHOICE; Start 10/14/19 at 13:30 Polyethylene Glycol (miraLAX PACKET) 17 gm DAILY PO Last administered on 10/16/19at 08:26; Start 10/16/19 at 09:00 Polyethylene Glycol (miraLAX PACKET) 17 gm 1X ONCE PO Last administered on 10/15/19at 16:06; Start 10/15/19 at 13:00; Stop 10/15/19 at 13:20; Status DC Docusate Sodium (Colace) 100 mg DAILY PO Last administered on 10/17/19at 07:57; Start 10/15/19 at 14:00 Docusate Sodium (Colace) 100 mg PRN DAILY PRN PO CONSTIPATION; Start 10/15/19 at 13:00 Magnesium Hydroxide (Milk Of Magnesia) 2,400 mg PRN DAILY PRN PO CONSTIPATION; Start 10/15/19 at 13:00 Phenyleph/Shark Oil/Min Oil/Petrol (Preparation H) 1 tarun PRN QID PRN RC RECTAL PAIN; Start 10/15/19 at 13:00 Lactobacillus Rhamnosus (Culturelle) 1 cap BID PO Last administered on 10/17/19at 07:57; Start 10/15/19 at 21:00 Potassium Chloride (Klor-Con) 20 meq DAILYWBKFT PO ; Start 10/18/19 at 08:00 Potassium Chloride (Klor-Con) 40 meq 1X ONCE PO Last administered on 10/17/19at 09:28; Start 10/17/19 at 09:30; Stop 10/17/19 at 09:31; Status DC Iohexol (Omnipaque 300 Mg/ml) 75 ml 1X ONCE IV ; Start 10/17/19 at 10:30; Stop 10/17/19 at 10:31; Status DC Iohexol (Omnipaque 240 Mg/ml) 50 ml 1X ONCE PO Last administered on 10/17/19at 10:30; Start 10/17/19 at 10:30; Stop 10/17/19 at 10:31; Status DC Info (CONTRAST GIVEN -- Rx MONITORING) 1 each PRN DAILY PRN MC SEE COMMENTS; Start 10/17/19 at 10:30; Stop 10/19/19 at 10:29 Active Scripts Active Reported Effexor Xr (Venlafaxine Hcl) 75 Mg Cap.er.24h 1 Cap PO DAILY Vitals/I & O Vital Sign - Last 24 Hours 10/16/19 10/16/19 10/16/19 10/16/19 15:00 16:52 17:57 19:00 Temp 98.1 98.1 98.1 98.1 Pulse 83 92 Resp 18 20 B/P (MAP) 113/64 (80) 142/76 (98) Pulse Ox 93 93 93 95 O2 Delivery Room Air Room Air Room Air 10/16/19 10/16/19 10/17/19 10/17/19 20:01 23:04 03:07 07:00 Temp 100.1 98.0 98.1 100.1 98.0 98.1 Pulse 101 77 71 Resp 20 18 18 B/P (MAP) 128/76 (93) 105/57 (73) 101/62 (75) Pulse Ox 93 94 94 O2 Delivery Room Air Room Air Room Air Room Air 10/17/19 10/17/19 07:09 11:06 Temp 98.0 98.0 Pulse 83 Resp 18 B/P (MAP) 128/68 (88) Pulse Ox 94 O2 Delivery Room Air Room Air Intake and Output 10/16/19 10/16/19 10/17/19 15:00 23:00 07:00 Intake Total 50 ml 70 ml Balance 50 ml 70 ml Hemodynamically unstable?: No Is patient in severe pain?: Yes Justification for admission: acute appy and sepsis Is NPO status required?: Yes GHULAM GAUTHIER MD Oct 17, 2019 13:23
[2019-10-17] MEDS ORDERED: MAGNESIUM SULFATE 1GM 100 ML IV ONE (13:30)
--- NOTE | 2019-10-17 14:10 | RAD ---
CT abdomen pelvis with contrast. HISTORY: Perforated appendicitis CT scan the abdomen and pelvis was done using 75 mL Omnipaque 300 contrast. Patient also had oral contrast. There are small bilateral pleural effusions. There is atelectasis in both lung bases although infiltrates are possible. Liver is normal in appearance. There is no calcified gallstone. Spleen and adrenal glands are normal. Pancreas is normal. There is no mass or hydronephrosis in the kidneys. There is no small bowel obstruction. There is inflammation in the lower quadrant of the abdomen. There is a 2 cm fluid collection on image 68 of series 2 in the right lower quadrant. There is a 1.6 x 2.3 cm fluid collection on image #70 in the right lower quadrant in the mesentery. Uterus and ovaries are normal. There is fluid behind the uterus anterior to the rectum in the lower pelvis. There is mild inflammation in the mesentery in the right lower quadrant. IMPRESSION: 1. Bilateral pleural effusions with atelectasis or infiltrate in both lower lobes. 2. 2 small fluid collections in the mesentery in the right lower quadrant abscesses are possible. 3. Fluid in the cul-de-sac behind the uterus anterior the rectum. 4. No bowel obstruction. PQRS Compliance Statement: One or more of the following individualized dose reduction techniques were utilized for this examination: 1. Automated exposure control 2. Adjustment of the mA and/or kV according to patient size 3. Use of iterative reconstruction technique Electronically signed by: Delgado Samaniego MD (10/17/2019 2:08 PM) [facility]
[2019-10-17 15:00] VITALS: BP 112/74
--- NOTE | 2019-10-17 15:04 | PDOC2 ---
CONSULT Date of Consult Date of Consult DATE: 10/17/19 TIME: 15:02 Reason for Consult Reason for Consult: Vaginal bleeding History of Present Illness Reason for Visit: C[employer] G[employer] Consult Reason for consult: vaginal bleeding HPI: The pt is a 44y who presented to the ER with acute right lower quadrant abdominal pain. She transferred to [place] and underwent a lap appy for a perforated appendicitis on 10/14/19. She has remained hospitalized to complete a course of abx. Her last fever was 100.1 on 10/16. She has remained w/o a WBC during this hospitalization. Due to increased RLQ tenderness PO she is scheduled for a repeat CT today. Yesterday the pt began to have some vaginal bleeding. The bleeding began with a small amount of old blood. Today she has noticed some bright red blood when she wipes. The pt underwent an endometrial ablation 2yrs ago for menorrhagia for about 1.5 yrs. She has had no bleeding since the ablation. The pt states that during the recent surgery it observed that she may have had a ruptured ovary. She wonders if that may be a reason for this episode of bleeding. 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 This was incidentally discovered during a fertility w/u. After an HSG revealed just one tube she underwent a Dx L/S. She states that she was also dx with PCOS during that eval based on the appearance of her ovary during the surgery and hirstism. PMH: Denies PSH: Lap Appy, Dx L/S for fertility, Endometrial ablation Meds: Effexor All: NKDA OBHx: 2 x TSVD, 1 x AB Crop Or Grain Farmer: LMP ~2yrs ago H/o OCP use for ~7yrs Menarche at ~7yo / regular cycles SH: PPD, rare EtOH Past Medical History Cardiovascular: No pertinent hx Pulmonary: No pertinent hx GI: No pertinent hx Heme/Onc: No pertinent hx Hepatobiliary: No pertinent hx Psych: No pertinent hx ENT: No pertinent hx Renal/: No pertinent hx Grav: 2 Para: 2 Past Surgical History Past Surgical History: Other (left ovary removed) Family History Family History: No Significant Social History <1 pack per day (one or two a week) ALCOHOL: rare Drugs: None Current Medications Current Medications Current Medications Sodium Chloride 1,000 ml @ 100 mls/hr Q10H IV Last administered on 10/16/19at 05:52; Start 10/14/19 at 03:00; Stop 10/16/19 at 13:12; Status DC Ondansetron HCl (Zofran) 4 mg PRN Q4HRS PRN IV NAUSEA/VOMITING 1ST CHOICE; Start 10/14/19 at 02:30; Stop 10/14/19 at 13:44; Status DC Zolpidem Tartrate (Ambien) 5 mg PRN QHS PRN PO INSOMNIA; Start 10/14/19 at 02:30 Acetaminophen (Tylenol) 650 mg PRN Q4HRS PRN PO TEMP OVER 100.4F OR MILD PAIN Last administered on 10/17/19at 07:57; Start 10/14/19 at 02:30 Diphenhydramine HCl (Benadryl) 25 mg PRN Q4HRS PRN IVP ITCHING; Start 10/14/19 at 02:30 Enoxaparin Sodium (Lovenox 40mg Syringe) 40 mg DAILY SQ Last administered on 10/17/19at 07:59; Start 10/14/19 at 09:00 Piperacillin Sod/ Tazobactam Sod 3.375 gm/Sodium Chloride 50 ml @ 100 mls/hr Q6HRS IV Last administered on 10/17/19at 11:08; Start 10/14/19 at 06:00 Metronidazole 100 ml @ 100 mls/hr Q8HRS IV Last administered on 10/14/19at 14:33; Start 10/14/19 at 06:00; Stop 10/14/19 at 17:01; Status DC Ketorolac Tromethamine (Toradol 30mg Vial) 30 mg PRN Q6HRS PRN IVP MODERATE PAIN 4-6 Last administered on 10/14/19at 17:22; Start 10/14/19 at 02:30 Hydromorphone HCl (Dilaudid) 1 mg PRN Q4HRS PRN IV SEVERE PAIN 7-10 Last administered on 10/14/19at 07:36; Start 10/14/19 at 02:30 Venlafaxine HCl (Effexor Xr) 75 mg DAILY PO Last administered on 10/17/19at 07:57; Start 10/14/19 at 09:00 Sodium Chloride 1,000 ml @ 1,000 mls/hr 1X ONCE IV ; Start 10/14/19 at 09:00; Stop 10/14/19 at 09:59; Status DC Ondansetron HCl (Zofran) 4 mg PRN Q6HRS PRN IV NAUSEA/VOMITING; Start 10/14/19 at 11:15; Stop 10/14/19 at 13:44; Status DC Fentanyl Citrate (Fentanyl 2ml Vial) 25 mcg PRN Q5MIN PRN IV MILD PAIN 1-3; Start 10/14/19 at 11:15; Stop 10/14/19 at 13:44; Status DC Fentanyl Citrate (Fentanyl 2ml Vial) 50 mcg PRN Q5MIN PRN IV MODERATE TO SEVERE PAIN Last administered on 10/14/19at 13:34; Start 10/14/19 at 11:15; Stop 10/14/19 at 13:44; Status DC Morphine Sulfate (Morphine Sulfate) 1 mg PRN Q10MIN PRN IV SEVERE PAIN 7-10 Last administered on 10/14/19at 14:32; Start 10/14/19 at 11:15; Stop 10/15/19 at 11:14; Status DC Ringer's Solution 1,000 ml @ 30 mls/hr Q24H IV ; Start 10/14/19 at 11:09; Stop 10/14/19 at 13:44; Status DC Hydromorphone HCl (Dilaudid) 0.5 mg PRN Q10MIN PRN IV SEV PAIN, Second choice; Start 10/14/19 at 11:15; Stop 10/14/19 at 13:44; Status DC Prochlorperazine Edisylate (Compazine) 5 mg PACU PRN PRN IV NAUSEA, MRX1; Start 10/14/19 at 11:15; Stop 10/14/19 at 13:44; Status DC Fentanyl Citrate (Fentanyl 2ml Vial) 100 mcg STK-MED ONCE .ROUTE ; Start 10/14/19 at 11:37; Stop 10/14/19 at 11:37; Status DC Rocuronium [place] (Zemuron) 50 mg STK-MED ONCE .ROUTE ; Start 10/14/19 at 11:44; Stop 10/14/19 at 11:44; Status DC Bupivacaine HCl/ Epinephrine Bitart (Sensorcain-Epi 0.5%-1:[id number] Mpf) 30 ml 1X ONCE INJ Last administered on 10/14/19at 12:37; Start 10/14/19 at 12:00; Stop 10/14/19 at 12:01; Status DC Phenylephrine HCl (PHENYLEPHRINE in 0.9% NACL PF) 1 mg STK-MED ONCE IV ; Start 10/14/19 at 12:27; Stop 10/14/19 at 12:27; Status DC Dexamethasone Sodium Phosphate (Decadron) 4 mg STK-MED ONCE .ROUTE ; Start 10/14/19 at 12:27; Stop 10/14/19 at 12:28; Status DC Ondansetron HCl (Zofran) 4 mg STK-MED ONCE .ROUTE ; Start 10/14/19 at 12:27; Stop 10/14/19 at 12:28; Status DC Propofol 20 ml @ As Directed STK-MED ONCE IV ; Start 10/14/19 at 12:27; Stop 10/14/19 at 12:28; Status DC Lidocaine HCl (Lidocaine Pf 2% Vial) 5 ml STK-MED ONCE .ROUTE ; Start 10/14/19 at 12:27; Stop 10/14/19 at 12:28; Status DC Fentanyl Citrate (Fentanyl 2ml Vial) 100 mcg STK-MED ONCE .ROUTE ; Start 10/14/19 at 12:49; Stop 10/14/19 at 12:49; Status DC Glycopyrrolate (Robinul) 1 mg STK-MED ONCE .ROUTE ; Start 10/14/19 at 13:02; Stop 10/14/19 at 13:02; Status DC Neostigmine Methylsulfate (Neostigmine Methylsulfate) 5 mg STK-MED ONCE .ROUTE ; Start 10/14/19 at 13:02; Stop 10/14/19 at 13:02; Status DC Enoxaparin Sodium (Lovenox 40mg Syringe) 40 mg Q24H SQ ; Start 10/14/19 at 13:30; Status UNV Sodium Chloride (Normal Saline Flush) 3 ml QSHIFT PRN IV AFTER MEDS AND BLOOD DRAWS; Start 10/14/19 at 13:30 Ringer's Solution 1,000 ml @ 100 mls/hr Q10H IV ; Start 10/14/19 at 13:25; Stop 10/15/19 at 07:42; Status DC Acetaminophen/ Hydrocodone Bitart (Lortab 5/325) 1 tab PRN Q4HRS PRN PO MILD PAIN 1-3 Last administered on 10/16/19at 23:24; Start 10/14/19 at 13:30 Naloxone HCl (Narcan) 0.4 mg PRN Q2MIN PRN IV SEE INSTRUCTIONS; Start 10/14/19 at 13:30 Sodium Chloride 1,000 ml @ 25 mls/hr Q24H IV ; Start 10/14/19 at 13:25; Stop 10/17/19 at 10:58; Status DC Morphine Sulfate (Morphine Sulfate) 1 mg PRN Q1HR PRN IV PAIN; Start 10/14/19 at 13:30 Ondansetron HCl (Zofran) 4 mg PRN Q6HRS PRN IVP NAUESA, 1ST CHOICE; Start 10/14/19 at 13:30 Polyethylene Glycol (miraLAX PACKET) 17 gm DAILY PO Last administered on 10/16/19at 08:26; Start 10/16/19 at 09:00 Polyethylene Glycol (miraLAX PACKET) 17 gm 1X ONCE PO Last administered on 10/15/19at 16:06; Start 10/15/19 at 13:00; Stop 10/15/19 at 13:20; Status DC Docusate Sodium (Colace) 100 mg DAILY PO Last administered on 10/17/19at 07:57; Start 10/15/19 at 14:00 Docusate Sodium (Colace) 100 mg PRN DAILY PRN PO CONSTIPATION; Start 10/15/19 at 13:00 Magnesium Hydroxide (Milk Of Magnesia) 2,400 mg PRN DAILY PRN PO CONSTIPATION; Start 10/15/19 at 13:00 Phenyleph/Shark Oil/Min Oil/Petrol (Preparation H) 1 tarun PRN QID PRN RC RECTAL PAIN; Start 10/15/19 at 13:00 Lactobacillus Rhamnosus (Culturelle) 1 cap BID PO Last administered on 10/17/19at 07:57; Start 10/15/19 at 21:00 Potassium Chloride (Klor-Con) 20 meq DAILYWBKFT PO ; Start 10/18/19 at 08:00 Potassium Chloride (Klor-Con) 40 meq 1X ONCE PO Last administered on 10/17/19at 09:28; Start 10/17/19 at 09:30; Stop 10/17/19 at 09:31; Status DC Iohexol (Omnipaque 300 Mg/ml) 75 ml 1X ONCE IV ; Start 10/17/19 at 10:30; Stop 10/17/19 at 10:31; Status DC Iohexol (Omnipaque 240 Mg/ml) 50 ml 1X ONCE PO Last administered on 10/17/19at 10:30; Start 10/17/19 at 10:30; Stop 10/17/19 at 10:31; Status DC Info (CONTRAST GIVEN -- Rx MONITORING) 1 each PRN DAILY PRN MC SEE COMMENTS; Start 10/17/19 at 10:30; Stop 10/19/19 at 10:29 Potassium Chloride/Water 100 ml @ 100 mls/hr Q1H IV ; Start 10/17/19 at 14:00; Stop 10/17/19 at 15:59 Magnesium Sulfate/ Dextrose 100 ml @ 100 mls/hr 1X ONCE IV Last administered on 10/17/19at 13:55; Start 10/17/19 at 13:30; Stop 10/17/19 at 14:29; Status DC Active Scripts Active Reported Effexor Xr (Venlafaxine Hcl) 75 Mg Cap.er.24h 1 Cap PO DAILY Allergies Allergies: Coded Allergies: No Known Drug Allergies (Unverified , 10/14/19) Physical Exam Physical Exam CTAB RRR S/slight RLQ tenderness/ND No C/C/E Vitals VITALS Vital Signs Date Time Temp Pulse Resp B/P (MAP) Pulse Ox O2 Delivery O2 Flow Rate FiO2 10/17/19 11:06 98.0 83 18 128/68 (88) 94 Room Air 98.0 10/16/19 11:00 2.0 Labs Labs Laboratory Tests Test 10/16/19 05:21 10/17/19 04:45 10/17/19 04:50 White Blood Count 7.8 x10^3/uL (4.0-11.0) 6.2 x10^3/uL (4.0-11.0) Red Blood Count 3.09 x10^6/uL (3.50-5.40) 2.85 x10^6/uL (3.50-5.40) Hemoglobin 10.2 g/dL (12.0-15.5) 9.5 g/dL (12.0-15.5) Hematocrit 29.8 % (36.0-47.0) 27.4 % (36.0-47.0) Mean Corpuscular Volume 97 fL (79-100) 96 fL (79-100) Mean Corpuscular Hemoglobin 33 pg (25-35) 33 pg (25-35) Mean Corpuscular Hemoglobin Concent 34 g/dL (31-37) 35 g/dL (31-37) Red Cell Distribution Width 13.6 % (11.5-14.5) 13.6 % (11.5-14.5) Platelet Count 135 x10^3/uL (140-400) 165 x10^3/uL (140-400) Neutrophils (%) (Auto) 84 % (31-73) 75 % (31-73) Lymphocytes (%) (Auto) 12 % (24-48) 15 % (24-48) Monocytes (%) (Auto) 4 % (0-9) 7 % (0-9) Eosinophils (%) (Auto) 1 % (0-3) 2 % (0-3) Basophils (%) (Auto) 0 % (0-3) 1 % (0-3) Neutrophils # (Auto) 6.5 x10^3/uL (1.8-7.7) 4.7 x10^3/uL (1.8-7.7) Lymphocytes # (Auto) 0.9 x10^3/uL (1.0-4.8) 1.0 x10^3/uL (1.0-4.8) Monocytes # (Auto) 0.3 x10^3/uL (0.0-1.1) 0.5 x10^3/uL (0.0-1.1) Eosinophils # (Auto) 0.1 x10^3/uL (0.0-0.7) 0.1 x10^3/uL (0.0-0.7) Basophils # (Auto) 0.0 x10^3/uL (0.0-0.2) 0.0 x10^3/uL (0.0-0.2) Sodium Level 141 mmol/L (136-145) Potassium Level 3.0 mmol/L (3.5-5.1) Chloride Level 106 mmol/L (98-107) Carbon Dioxide Level 25 mmol/L (21-32) Anion Gap 10 (6-14) Blood Urea Nitrogen 4 mg/dL (7-20) Creatinine 0.5 mg/dL (0.6-1.0) Estimated GFR (Cockcroft-Gault) 134.0 Glucose Level 85 mg/dL (70-99) Calcium Level 7.8 mg/dL (8.5-10.1) Magnesium Level 1.9 mg/dL (1.8-2.4) Laboratory Tests Test 10/17/19 04:45 10/17/19 04:50 White Blood Count 6.2 x10^3/uL (4.0-11.0) Red Blood Count 2.85 x10^6/uL (3.50-5.40) Hemoglobin 9.5 g/dL (12.0-15.5) Hematocrit 27.4 % (36.0-47.0) Mean Corpuscular Volume 96 fL (79-100) Mean Corpuscular Hemoglobin 33 pg (25-35) Mean Corpuscular Hemoglobin Concent 35 g/dL (31-37) Red Cell Distribution Width 13.6 % (11.5-14.5) Platelet Count 165 x10^3/uL (140-400) Neutrophils (%) (Auto) 75 % (31-73) Lymphocytes (%) (Auto) 15 % (24-48) Monocytes (%) (Auto) 7 % (0-9) Eosinophils (%) (Auto) 2 % (0-3) Basophils (%) (Auto) 1 % (0-3) Neutrophils # (Auto) 4.7 x10^3/uL (1.8-7.7) Lymphocytes # (Auto) 1.0 x10^3/uL (1.0-4.8) Monocytes # (Auto) 0.5 x10^3/uL (0.0-1.1) Eosinophils # (Auto) 0.1 x10^3/uL (0.0-0.7) Basophils # (Auto) 0.0 x10^3/uL (0.0-0.2) Sodium Level 141 mmol/L (136-145) Potassium Level 3.0 mmol/L (3.5-5.1) Chloride Level 106 mmol/L (98-107) Carbon Dioxide Level 25 mmol/L (21-32) Anion Gap 10 (6-14) Blood Urea Nitrogen 4 mg/dL (7-20) Creatinine 0.5 mg/dL (0.6-1.0) Estimated GFR (Cockcroft-Gault) 134.0 Glucose Level 85 mg/dL (70-99) Calcium Level 7.8 mg/dL (8.5-10.1) Magnesium Level 1.9 mg/dL (1.8-2.4) Assessment/Plan Assessment/Plan Assessment: 44y s/p lap appy for a perforated appendicitis on 10/14/19 Plan: 1.) Vaginal bleeding Explained to patient that cyst formation was nml. Typically most cysts are asx and just functional. Pt is aware of this. Explained that potentially a hemorrhagic cyst could cause pelvic pain, but typically this would not affect ones menstrual cycle. It is not uncommon to have an isolated bleeding episode after an ablation. Usually the pts bleeding pattern after such an event would return to its previous state (for her amenorrhea). Moreover the amount of bleeding she is having at this time is not significant, so it would be best to just monitor the bleeding. If the amount were to increase, a pad count would help better quantify the amount of bleeding. This recent bleeding episode is most likely unrelated to the recent surgery or the cyst the pt reports was seen intraop. Eval of her PMB with traditional methods like an ultrasound or sampling is not as effective after an ablation. Moreover since the postmenopausal state is surgical an ultrasound may be less effective in helping to make a clear dx. At this time no intervention is warranted and the best option would be to continue to monitor the bleeding. 2.) Unicornate uterus 3.) RLQ pain team is currently considering an abscess formation, CT ordered this am 4.) POD #3 s/p lap Appy 5.) Sepsis on Flagyl and Zosyn 6.) H/o depression, - on Effexaor 7.) Will continue to follow ROBERTO CARLOS MEANS MD Oct 17, 2019 15:04
[2019-10-17] MEDS: POTASSIUM CHLORIDE 10MEQ 100 ML IV SCH ×2 (15:10→16:10)
[2019-10-17] MEDS: KETOROLAC 30 MG/ML VIAL. IVP PRN (16:15)
[2019-10-17 19:00] VITALS: BP 137/86
[2019-10-17] MEDS: HYDROcodone/APAP 5/325MG 1 TAB TABLET PO PRN (20:02)
[2019-10-17 23:00] VITALS: BP 119/66
[2019-10-18 03:00] VITALS: BP 116/73
[2019-10-18] MEDS: PIPERACILLIN/TAZOBACTAM 3.375 GM in IV NORMAL SALINE 50ML 50 ML IV SCH ×3 (05:37→17:01)
[2019-10-18 06:52] LABS: CALCIUM 7.7 mg/dL (8.5-10.1); CREATININE 0.5 mg/dL (0.6-1.0); POTASSIUM 3.3 mmol/L (3.5-5.1)
[2019-10-18] MEDS: DOCUSATE SODIUM 100 MG CAPSULE. PO SCH (06:55)
[2019-10-18] MEDS: POLYETHYLENE GLYCOL 3350 17 GM PACKET. PO SCH (06:56)
[2019-10-18 07:00] VITALS: BP 115/71
[2019-10-18] MEDS: POTASSIUM CHLORIDE 20 MEQ TABLET.ER. PO SCH (07:34)
[2019-10-18] MEDS: LACTOBACILLUS RHAMNOSUS GG 1 CAPSULE. PO SCH ×2 (07:34→21:00)
[2019-10-18] MEDS: ACETAMINOPHEN 325 MG TABLET. PO PRN (07:34)
[2019-10-18] MEDS: VENLAFAXINE XR 37.5 MG CAP.ER.24H. PO SCH (07:34)
[2019-10-18] MEDS: ENOXAPARIN 40 MG/0.4 ML SYRINGE. SQ SCH (07:35)
--- NOTE | 2019-10-18 10:03 | PDOC ---
SURGICAL PROGRESS NOTE Subjective feels better still some pain Vital Signs Vital Signs Date Time Temp Pulse Resp B/P (MAP) Pulse Ox O2 Delivery O2 Flow Rate FiO2 10/18/19 07:05 Room Air 10/18/19 07:00 98.1 84 16 115/71 (86) 95 98.1 I&O Intake and Output 10/18/19 07:00 Intake Total 940 ml Output Total 0 ml Balance 940 ml Intake Oral 790 ml IV Total 150 ml Output Urine Total 0 ml # Voids 3 General: Alert, Oriented X3, Cooperative Abdomen: Soft, Other (ttp epigastric) Labs Laboratory Tests Test 10/17/19 04:45 10/17/19 04:50 10/18/19 05:35 White Blood Count 6.2 x10^3/uL (4.0-11.0) Red Blood Count 2.85 x10^6/uL (3.50-5.40) Hemoglobin 9.5 g/dL (12.0-15.5) Hematocrit 27.4 % (36.0-47.0) Mean Corpuscular Volume 96 fL (79-100) Mean Corpuscular Hemoglobin 33 pg (25-35) Mean Corpuscular Hemoglobin Concent 35 g/dL (31-37) Red Cell Distribution Width 13.6 % (11.5-14.5) Platelet Count 165 x10^3/uL (140-400) Neutrophils (%) (Auto) 75 % (31-73) Lymphocytes (%) (Auto) 15 % (24-48) Monocytes (%) (Auto) 7 % (0-9) Eosinophils (%) (Auto) 2 % (0-3) Basophils (%) (Auto) 1 % (0-3) Neutrophils # (Auto) 4.7 x10^3/uL (1.8-7.7) Lymphocytes # (Auto) 1.0 x10^3/uL (1.0-4.8) Monocytes # (Auto) 0.5 x10^3/uL (0.0-1.1) Eosinophils # (Auto) 0.1 x10^3/uL (0.0-0.7) Basophils # (Auto) 0.0 x10^3/uL (0.0-0.2) Sodium Level 141 mmol/L (136-145) 142 mmol/L (136-145) Potassium Level 3.0 mmol/L (3.5-5.1) 3.3 mmol/L (3.5-5.1) Chloride Level 106 mmol/L (98-107) 106 mmol/L (98-107) Carbon Dioxide Level 25 mmol/L (21-32) 25 mmol/L (21-32) Anion Gap 10 (6-14) 11 (6-14) Blood Urea Nitrogen 4 mg/dL (7-20) 9 mg/dL (7-20) Creatinine 0.5 mg/dL (0.6-1.0) 0.5 mg/dL (0.6-1.0) Estimated GFR (Cockcroft-Gault) 134.0 134.0 Glucose Level 85 mg/dL (70-99) 97 mg/dL (70-99) Calcium Level 7.8 mg/dL (8.5-10.1) 7.7 mg/dL (8.5-10.1) Magnesium Level 1.9 mg/dL (1.8-2.4) Laboratory Tests Test 10/18/19 05:35 Sodium Level 142 mmol/L (136-145) Potassium Level 3.3 mmol/L (3.5-5.1) Chloride Level 106 mmol/L (98-107) Carbon Dioxide Level 25 mmol/L (21-32) Anion Gap 11 (6-14) Blood Urea Nitrogen 9 mg/dL (7-20) Creatinine 0.5 mg/dL (0.6-1.0) Estimated GFR (Cockcroft-Gault) 134.0 Glucose Level 97 mg/dL (70-99) Calcium Level 7.7 mg/dL (8.5-10.1) Assessment/Plan wbc normal, afebrile 2 small fluid collections on ct--will review with Dr Lorenzo continue IV abx of now NAEEM SINGLETARY APRN Oct 18, 2019 10:03
[2019-10-18] MEDS ORDERED: POTASSIUM CHLORIDE 20 MEQ TABLET.ER. PO ONE (10:15)
[2019-10-18 11:00] VITALS: BP 104/59
--- NOTE | 2019-10-18 12:29 | PDOC ---
PROGRESS NOTES Chief Complaint Chief Complaint acute abdominal pain acute perforated appendicitis - Post-op day 2 laparoscopic appendectomy sepsis, flagyl and zosyn, IV fluid will bolus IV saline Depression History of Present Illness History of Present Illness 10/18, feels improved, no event would like to ambulate more 2 cm fluid collection seen on CT, gen surg following, may need IR to place drain, cont abx, cx pending Ms Pompa is a 44yo F w/ PMHx PCOS, depression who presented with abdominal pain since 10/11/19, came to [place] on 10/13, found with appendicitis with likely abscess, s/p lap appy on 10/14 with necrosis. Vitals Vitals Vital Signs Date Time Temp Pulse Resp B/P (MAP) Pulse Ox O2 Delivery O2 Flow Rate FiO2 10/18/19 11:00 97.8 69 18 104/59 (74) 95 Room Air 97.8 Physical Exam General: Alert, Oriented X3, Cooperative Heart: Regular rate, Normal S1, Normal S2 Lungs: Clear Abdomen: Soft, Other (ttp epigastric) Extremities: No clubbing, No cyanosis Skin: No rashes, No breakdown Labs LABS Laboratory Tests Test 10/18/19 05:35 Sodium Level 142 mmol/L (136-145) Potassium Level 3.3 mmol/L (3.5-5.1) Chloride Level 106 mmol/L (98-107) Carbon Dioxide Level 25 mmol/L (21-32) Anion Gap 11 (6-14) Blood Urea Nitrogen 9 mg/dL (7-20) Creatinine 0.5 mg/dL (0.6-1.0) Estimated GFR (Cockcroft-Gault) 134.0 Glucose Level 97 mg/dL (70-99) Calcium Level 7.7 mg/dL (8.5-10.1) Comment Review of Relevant I have reviewed the following items marquis (where applicable) has been applied. Labs Laboratory Tests Test 10/17/19 04:45 10/17/19 04:50 10/18/19 05:35 White Blood Count 6.2 x10^3/uL (4.0-11.0) Red Blood Count 2.85 x10^6/uL (3.50-5.40) Hemoglobin 9.5 g/dL (12.0-15.5) Hematocrit 27.4 % (36.0-47.0) Mean Corpuscular Volume 96 fL (79-100) Mean Corpuscular Hemoglobin 33 pg (25-35) Mean Corpuscular Hemoglobin Concent 35 g/dL (31-37) Red Cell Distribution Width 13.6 % (11.5-14.5) Platelet Count 165 x10^3/uL (140-400) Neutrophils (%) (Auto) 75 % (31-73) Lymphocytes (%) (Auto) 15 % (24-48) Monocytes (%) (Auto) 7 % (0-9) Eosinophils (%) (Auto) 2 % (0-3) Basophils (%) (Auto) 1 % (0-3) Neutrophils # (Auto) 4.7 x10^3/uL (1.8-7.7) Lymphocytes # (Auto) 1.0 x10^3/uL (1.0-4.8) Monocytes # (Auto) 0.5 x10^3/uL (0.0-1.1) Eosinophils # (Auto) 0.1 x10^3/uL (0.0-0.7) Basophils # (Auto) 0.0 x10^3/uL (0.0-0.2) Sodium Level 141 mmol/L (136-145) 142 mmol/L (136-145) Potassium Level 3.0 mmol/L (3.5-5.1) 3.3 mmol/L (3.5-5.1) Chloride Level 106 mmol/L (98-107) 106 mmol/L (98-107) Carbon Dioxide Level 25 mmol/L (21-32) 25 mmol/L (21-32) Anion Gap 10 (6-14) 11 (6-14) Blood Urea Nitrogen 4 mg/dL (7-20) 9 mg/dL (7-20) Creatinine 0.5 mg/dL (0.6-1.0) 0.5 mg/dL (0.6-1.0) Estimated GFR (Cockcroft-Gault) 134.0 134.0 Glucose Level 85 mg/dL (70-99) 97 mg/dL (70-99) Calcium Level 7.8 mg/dL (8.5-10.1) 7.7 mg/dL (8.5-10.1) Magnesium Level 1.9 mg/dL (1.8-2.4) Laboratory Tests Test 10/18/19 05:35 Sodium Level 142 mmol/L (136-145) Potassium Level 3.3 mmol/L (3.5-5.1) Chloride Level 106 mmol/L (98-107) Carbon Dioxide Level 25 mmol/L (21-32) Anion Gap 11 (6-14) Blood Urea Nitrogen 9 mg/dL (7-20) Creatinine 0.5 mg/dL (0.6-1.0) Estimated GFR (Cockcroft-Gault) 134.0 Glucose Level 97 mg/dL (70-99) Calcium Level 7.7 mg/dL (8.5-10.1) Medications Current Medications Sodium Chloride 1,000 ml @ 100 mls/hr Q10H IV Last administered on 10/16/19at 05:52; Start 10/14/19 at 03:00; Stop 10/16/19 at 13:12; Status DC Ondansetron HCl (Zofran) 4 mg PRN Q4HRS PRN IV NAUSEA/VOMITING 1ST CHOICE; Start 10/14/19 at 02:30; Stop 10/14/19 at 13:44; Status DC Zolpidem Tartrate (Ambien) 5 mg PRN QHS PRN PO INSOMNIA; Start 10/14/19 at 02:30 Acetaminophen (Tylenol) 650 mg PRN Q4HRS PRN PO TEMP OVER 100.4F OR MILD PAIN Last administered on 10/18/19at 07:34; Start 10/14/19 at 02:30 Diphenhydramine HCl (Benadryl) 25 mg PRN Q4HRS PRN IVP ITCHING; Start 10/14/19 at 02:30 Enoxaparin Sodium (Lovenox 40mg Syringe) 40 mg DAILY SQ Last administered on 10/18/19at 07:35; Start 10/14/19 at 09:00 Piperacillin Sod/ Tazobactam Sod 3.375 gm/Sodium Chloride 50 ml @ 100 mls/hr Q6HRS IV Last administered on 10/18/19at 11:09; Start 10/14/19 at 06:00 Metronidazole 100 ml @ 100 mls/hr Q8HRS IV Last administered on 10/14/19at 14:33; Start 10/14/19 at 06:00; Stop 10/14/19 at 17:01; Status DC Ketorolac Tromethamine (Toradol 30mg Vial) 30 mg PRN Q6HRS PRN IVP MODERATE PAIN 4-6 Last administered on 10/17/19at 16:15; Start 10/14/19 at 02:30 Hydromorphone HCl (Dilaudid) 1 mg PRN Q4HRS PRN IV SEVERE PAIN 7-10 Last administered on 10/14/19at 07:36; Start 10/14/19 at 02:30 Venlafaxine HCl (Effexor Xr) 75 mg DAILY PO Last administered on 10/18/19at 07:34; Start 10/14/19 at 09:00 Sodium Chloride 1,000 ml @ 1,000 mls/hr 1X ONCE IV ; Start 10/14/19 at 09:00; Stop 10/14/19 at 09:59; Status DC Ondansetron HCl (Zofran) 4 mg PRN Q6HRS PRN IV NAUSEA/VOMITING; Start 10/14/19 at 11:15; Stop 10/14/19 at 13:44; Status DC Fentanyl Citrate (Fentanyl 2ml Vial) 25 mcg PRN Q5MIN PRN IV MILD PAIN 1-3; Start 10/14/19 at 11:15; Stop 10/14/19 at 13:44; Status DC Fentanyl Citrate (Fentanyl 2ml Vial) 50 mcg PRN Q5MIN PRN IV MODERATE TO SEVERE PAIN Last administered on 10/14/19at 13:34; Start 10/14/19 at 11:15; Stop 10/14/19 at 13:44; Status DC Morphine Sulfate (Morphine Sulfate) 1 mg PRN Q10MIN PRN IV SEVERE PAIN 7-10 Last administered on 10/14/19at 14:32; Start 10/14/19 at 11:15; Stop 10/15/19 at 11:14; Status DC Ringer's Solution 1,000 ml @ 30 mls/hr Q24H IV ; Start 10/14/19 at 11:09; Stop 10/14/19 at 13:44; Status DC Hydromorphone HCl (Dilaudid) 0.5 mg PRN Q10MIN PRN IV SEV PAIN, Second choice; Start 10/14/19 at 11:15; Stop 10/14/19 at 13:44; Status DC Prochlorperazine Edisylate (Compazine) 5 mg PACU PRN PRN IV NAUSEA, MRX1; Start 10/14/19 at 11:15; Stop 10/14/19 at 13:44; Status DC Fentanyl Citrate (Fentanyl 2ml Vial) 100 mcg STK-MED ONCE .ROUTE ; Start 10/14/19 at 11:37; Stop 10/14/19 at 11:37; Status DC Rocuronium [place] (Zemuron) 50 mg STK-MED ONCE .ROUTE ; Start 10/14/19 at 11:44; Stop 10/14/19 at 11:44; Status DC Bupivacaine HCl/ Epinephrine Bitart (Sensorcain-Epi 0.5%-1:073044 Mpf) 30 ml 1X ONCE INJ Last administered on 10/14/19at 12:37; Start 10/14/19 at 12:00; Stop 10/14/19 at 12:01; Status DC Phenylephrine HCl (PHENYLEPHRINE in 0.9% NACL PF) 1 mg STK-MED ONCE IV ; Start 10/14/19 at 12:27; Stop 10/14/19 at 12:27; Status DC Dexamethasone Sodium Phosphate (Decadron) 4 mg STK-MED ONCE .ROUTE ; Start 1 12/15/18 at 12:27; Stop 10/14/19 at 12:28; Status DC Ondansetron HCl (Zofran) 4 mg STK-MED ONCE .ROUTE ; Start 10/14/19 at 12:27; Stop 10/14/19 at 12:28; Status DC Propofol 20 ml @ As Directed STK-MED ONCE IV ; Start 10/14/19 at 12:27; Stop 10/14/19 at 12:28; Status DC Lidocaine HCl (Lidocaine Pf 2% Vial) 5 ml STK-MED ONCE .ROUTE ; Start 10/14/19 at 12:27; Stop 10/14/19 at 12:28; Status DC Fentanyl Citrate (Fentanyl 2ml Vial) 100 mcg STK-MED ONCE .ROUTE ; Start 10/14/19 at 12:49; Stop 10/14/19 at 12:49; Status DC Glycopyrrolate (Robinul) 1 mg STK-MED ONCE .ROUTE ; Start 10/14/19 at 13:02; Stop 10/14/19 at 13:02; Status DC Neostigmine Methylsulfate (Neostigmine Methylsulfate) 5 mg STK-MED ONCE .ROUTE ; Start 10/14/19 at 13:02; Stop 10/14/19 at 13:02; Status DC Enoxaparin Sodium (Lovenox 40mg Syringe) 40 mg Q24H SQ ; Start 10/14/19 at 13:30; Status UNV Sodium Chloride (Normal Saline Flush) 3 ml QSHIFT PRN IV AFTER MEDS AND BLOOD DRAWS; Start 10/14/19 at 13:30 Ringer's Solution 1,000 ml @ 100 mls/hr Q10H IV ; Start 10/14/19 at 13:25; Stop 10/15/19 at 07:42; Status DC Acetaminophen/ Hydrocodone Bitart (Lortab 5/325) 1 tab PRN Q4HRS PRN PO MODERATE PAIN Last administered on 10/17/19at 20:02; Start 10/14/19 at 13:30 Naloxone HCl (Narcan) 0.4 mg PRN Q2MIN PRN IV SEE INSTRUCTIONS; Start 10/14/19 at 13:30 Sodium Chloride 1,000 ml @ 25 mls/hr Q24H IV ; Start 10/14/19 at 13:25; Stop 10/17/19 at 10:58; Status DC Morphine Sulfate (Morphine Sulfate) 1 mg PRN Q1HR PRN IV SEVERE PAIN, 2nd CH OICE; Start 10/14/19 at 13:30 Ondansetron HCl (Zofran) 4 mg PRN Q6HRS PRN IVP NAUESA, 1ST CHOICE; Start 10/14/19 at 13:30 Polyethylene Glycol (miraLAX PACKET) 17 gm DAILY PO Last administered on 10/16/19at 08:26; Start 10/16/19 at 09:00 Polyethylene Glycol (miraLAX PACKET) 17 gm 1X ONCE PO Last administered on 10/15/19at 16:06; Start 10/15/19 at 13:00; Stop 10/15/19 at 13:20; Status DC Docusate Sodium (Colace) 100 mg DAILY PO Last administered on 10/17/19at 07:57; Start 10/15/19 at 14:00 Docusate Sodium (Colace) 100 mg PRN DAILY PRN PO CONSTIPATION; Start 10/15/19 at 13:00 Magnesium Hydroxide (Milk Of Magnesia) 2,400 mg PRN DAILY PRN PO CONSTIPATION; Start 10/15/19 at 13:00 Phenyleph/Shark Oil/Min Oil/Petrol (Preparation H) 1 tarun PRN QID PRN RC RECTAL PAIN; Start 10/15/19 at 13:00 Lactobacillus Rhamnosus (Culturelle) 1 cap BID PO Last administered on 10/18/19at 07:34; Start 10/15/19 at 21:00 Potassium Chloride (Klor-Con) 20 meq DAILYWBKFT PO Last administered on 10/18/19at 07:34; Start 10/18/19 at 08:00 Potassium Chloride (Klor-Con) 40 meq 1X ONCE PO Last administered on 10/17/19at 09:28; Start 10/17/19 at 09:30; Stop 10/17/19 at 09:31; Status DC Iohexol (Omnipaque 300 Mg/ml) 75 ml 1X ONCE IV ; Start 10/17/19 at 10:30; Stop 10/17/19 at 10:31; Status DC Iohexol (Omnipaque 240 Mg/ml) 50 ml 1X ONCE PO Last administered on 10/17/19at 10:30; Start 10/17/19 at 10:30; Stop 10/17/19 at 10:31; Status DC Info (CONTRAST GIVEN -- Rx MONITORING) 1 each PRN DAILY PRN MC SEE COMMENTS; Start 10/17/19 at 10:30; Stop 10/19/19 at 10:29 Potassium Chloride/Water 100 ml @ 100 mls/hr Q1H IV Last administered on 10/17/19at 16:10; Start 10/17/19 at 14:00; Stop 10/17/19 at 15:59; Status DC Magnesium Sulfate/ Dextrose 100 ml @ 100 mls/hr 1X ONCE IV Last administered on 10/17/19at 13:55; Start 10/17/19 at 13:30; Stop 10/17/19 at 14:29; Status DC Potassium Chloride (Klor-Con) 40 meq 1X ONCE PO Last administered on 10/18/19at 11:09; Start 10/18/19 at 10:15; Stop 10/18/19 at 10:20; Status DC Active Scripts Active Reported Effexor Xr (Venlafaxine Hcl) 75 Mg Cap.er.24h 1 Cap PO DAILY Vitals/I & O Vital Sign - Last 24 Hours 10/17/19 10/17/19 10/17/19 10/17/19 15:00 19:00 20:00 23:00 Temp 98.2 97.9 98.1 98.2 97.9 98.1 Pulse 79 77 76 Resp 18 18 18 B/P (MAP) 112/74 (87) 137/86 (103) 119/66 (83) Pulse Ox 93 94 91 O2 Delivery Room Air Room Air Room Air Room Air 10/18/19 10/18/19 10/18/19 10/18/19 03:00 07:00 07:05 11:00 Temp 98.1 98.1 97.8 98.1 98.1 97.8 Pulse 80 84 69 Resp 18 16 18 B/P (MAP) 116/73 (87) 115/71 (86) 104/59 (74) Pulse Ox 91 95 95 O2 Delivery Room Air Room Air Room Air Room Air Intake and Output 10/17/19 10/17/19 10/18/19 15:00 23:00 07:00 Intake Total 400 ml 440 ml 100 ml Output Total 0 ml Balance 400 ml 440 ml 100 ml Hemodynamically unstable?: No Is patient in severe pain?: Yes Justification for admission: acute appy and sepsis Is NPO status required?: Yes AKIN PICKETT MD Oct 18, 2019 12:29
[2019-10-18 15:00] VITALS: BP 99/62
--- NOTE | 2019-10-18 15:24 | PDOC ---
PROGRESS NOTES Subjective Subjective Pt still with vaginal spotting (no better or worse) Objective Objective Vital Signs Date Time Temp Pulse Resp B/P (MAP) Pulse Ox O2 Delivery O2 Flow Rate FiO2 10/18/19 15:00 97.5 75 18 99/62 (74) 96 Room Air 97.5 10/16/19 11:00 2.0 Intake and Output 10/18/19 07:00 Intake Total 940 ml Output Total 0 ml Balance 940 ml Intake Oral 790 ml IV Total 150 ml Output Urine Total 0 ml # Voids 3 Physical Exam Physical Exam CTAB RRR S/NT/ND no C/C/E Assessment Assessment Assessment: 44y s/p lap appy for a perforated appendicitis on 10/14/19 Plan: 1.) Vaginal bleeding still with just spotting, no intervention indicated at this time 2.) Unicornate uterus 3.) PCOS 4.) RLQ pain 2 cm fluid collection seen on CT, Gen Surg following 5.) POD #4 s/p lap Appy 6.) Sepsis on Flagyl and Zosyn 7.) H/o depression, - on Effexaor 8.) Will continue to follow Comment Review of Relevant I have reviewed the following items marquis (where applicable) has been applied. Labs Laboratory Tests Test 10/17/19 04:45 10/17/19 04:50 10/18/19 05:35 White Blood Count 6.2 x10^3/uL (4.0-11.0) Red Blood Count 2.85 x10^6/uL (3.50-5.40) Hemoglobin 9.5 g/dL (12.0-15.5) Hematocrit 27.4 % (36.0-47.0) Mean Corpuscular Volume 96 fL (79-100) Mean Corpuscular Hemoglobin 33 pg (25-35) Mean Corpuscular Hemoglobin Concent 35 g/dL (31-37) Red Cell Distribution Width 13.6 % (11.5-14.5) Platelet Count 165 x10^3/uL (140-400) Neutrophils (%) (Auto) 75 % (31-73) Lymphocytes (%) (Auto) 15 % (24-48) Monocytes (%) (Auto) 7 % (0-9) Eosinophils (%) (Auto) 2 % (0-3) Basophils (%) (Auto) 1 % (0-3) Neutrophils # (Auto) 4.7 x10^3/uL (1.8-7.7) Lymphocytes # (Auto) 1.0 x10^3/uL (1.0-4.8) Monocytes # (Auto) 0.5 x10^3/uL (0.0-1.1) Eosinophils # (Auto) 0.1 x10^3/uL (0.0-0.7) Basophils # (Auto) 0.0 x10^3/uL (0.0-0.2) Sodium Level 141 mmol/L (136-145) 142 mmol/L (136-145) Potassium Level 3.0 mmol/L (3.5-5.1) 3.3 mmol/L (3.5-5.1) Chloride Level 106 mmol/L (98-107) 106 mmol/L (98-107) Carbon Dioxide Level 25 mmol/L (21-32) 25 mmol/L (21-32) Anion Gap 10 (6-14) 11 (6-14) Blood Urea Nitrogen 4 mg/dL (7-20) 9 mg/dL (7-20) Creatinine 0.5 mg/dL (0.6-1.0) 0.5 mg/dL (0.6-1.0) Estimated GFR (Cockcroft-Gault) 134.0 134.0 Glucose Level 85 mg/dL (70-99) 97 mg/dL (70-99) Calcium Level 7.8 mg/dL (8.5-10.1) 7.7 mg/dL (8.5-10.1) Magnesium Level 1.9 mg/dL (1.8-2.4) Laboratory Tests Test 10/18/19 05:35 Sodium Level 142 mmol/L (136-145) Potassium Level 3.3 mmol/L (3.5-5.1) Chloride Level 106 mmol/L (98-107) Carbon Dioxide Level 25 mmol/L (21-32) Anion Gap 11 (6-14) Blood Urea Nitrogen 9 mg/dL (7-20) Creatinine 0.5 mg/dL (0.6-1.0) Estimated GFR (Cockcroft-Gault) 134.0 Glucose Level 97 mg/dL (70-99) Calcium Level 7.7 mg/dL (8.5-10.1) Medications Current Medications Sodium Chloride 1,000 ml @ 100 mls/hr Q10H IV Last administered on 10/16/19at 05:52; Start 10/14/19 at 03:00; Stop 10/16/19 at 13:12; Status DC Ondansetron HCl (Zofran) 4 mg PRN Q4HRS PRN IV NAUSEA/VOMITING 1ST CHOICE; Start 10/14/19 at 02:30; Stop 10/14/19 at 13:44; Status DC Zolpidem Tartrate (Ambien) 5 mg PRN QHS PRN PO INSOMNIA; Start 10/14/19 at 02:30 Acetaminophen (Tylenol) 650 mg PRN Q4HRS PRN PO TEMP OVER 100.4F OR MILD PAIN Last administered on 10/18/19at 07:34; Start 10/14/19 at 02:30 Diphenhydramine HCl (Benadryl) 25 mg PRN Q4HRS PRN IVP ITCHING; Start 10/14/19 at 02:30 Enoxaparin Sodium (Lovenox 40mg Syringe) 40 mg DAILY SQ Last administered on 10/18/19at 07:35; Start 10/14/19 at 09:00 Piperacillin Sod/ Tazobactam Sod 3.375 gm/Sodium Chloride 50 ml @ 100 mls/hr Q6HRS IV Last administered on 10/18/19 11:09; Start 10/14/19 at 06:00 Metronidazole 100 ml @ 100 mls/hr Q8HRS IV Last administered on 10/14/19at 14:33; Start 10/14/19 at 06:00; Stop 10/14/19 at 17:01; Status DC Ketorolac Tromethamine (Toradol 30mg Vial) 30 mg PRN Q6HRS PRN IVP MODERATE PAIN 4-6 Last administered on 10/17/19at 16:15; Start 10/14/19 at 02:30 Hydromorphone HCl (Dilaudid) 1 mg PRN Q4HRS PRN IV SEVERE PAIN 7-10 Last administered on 10/14/19at 07:36; Start 10/14/19 at 02:30 Venlafaxine HCl (Effexor Xr) 75 mg DAILY PO Last administered on 12/15/19at 07:34; Start 10/14/19 at 09:00 Sodium Chloride 1,000 ml @ 1,000 mls/hr 1X ONCE IV ; Start 10/14/19 at 09:00; Stop 10/14/19 at 09:59; Status DC Ondansetron HCl (Zofran) 4 mg PRN Q6HRS PRN IV NAUSEA/VOMITING; Start 10/14/19 at 11:15; Stop 10/14/19 at 13:44; Status DC Fentanyl Citrate (Fentanyl 2ml Vial) 25 mcg PRN Q5MIN PRN IV MILD PAIN 1-3; Start 10/14/19 at 11:15; Stop 10/14/19 at 13:44; Status DC Fentanyl Citrate (Fentanyl 2ml Vial) 50 mcg PRN Q5MIN PRN IV MODERATE TO SEVERE PAIN Last administered on 10/14/19at 13:34; Start 10/14/19 at 11:15; Stop 10/14/19 at 13:44; Status DC Morphine Sulfate (Morphine Sulfate) 1 mg PRN Q10MIN PRN IV SEVERE PAIN 7-10 Last administered on 10/14/19at 14:32; Start 10/14/19 at 11:15; Stop 10/15/19 at 11:14; Status DC Ringer's Solution 1,000 ml @ 30 mls/hr Q24H IV ; Start 10/14/19 at 11:09; Stop 10/14/19 at 13:44; Status DC Hydromorphone HCl (Dilaudid) 0.5 mg PRN Q10MIN PRN IV SEV PAIN, Second choice; Start 10/14/19 at 11:15; Stop 10/14/19 at 13:44; Status DC Prochlorperazine Edisylate (Compazine) 5 mg PACU PRN PRN IV NAUSEA, MRX1; Start 10/14/19 at 11:15; Stop 10/14/19 at 13:44; Status DC Fentanyl Citrate (Fentanyl 2ml Vial) 100 mcg STK-MED ONCE .ROUTE ; Start 10/14/19 at 11:37; Stop 10/14/19 at 11:37; Status DC Rocuronium [place] (Zemuron) 50 mg STK-MED ONCE .ROUTE ; Start 10/14/19 at 11:44; Stop 10/14/19 at 11:44; Status DC Bupivacaine HCl/ Epinephrine Bitart (Sensorcain-Epi 0.5%-1:956587 Mpf) 30 ml 1X ONCE INJ Last administered on 10/14/19at 12:37; Start 10/14/19 at 12:00; Stop 10/14/19 at 12:01; Status DC Phenylephrine HCl (PHENYLEPHRINE in 0.9% NACL PF) 1 mg STK-MED ONCE IV ; Start 10/14/19 at 12:27; Stop 10/14/19 at 12:27; Status DC Dexamethasone Sodium Phosphate (Decadron) 4 mg STK-MED ONCE .ROUTE ; Start 10/14/19 at 12:27; Stop 10/14/19 at 12:28; Status DC Ondansetron HCl (Zofran) 4 mg STK-MED ONCE .ROUTE ; Start 10/14/19 at 12:27; Stop 10/14/19 at 12:28; Status DC Propofol 20 ml @ As Directed STK-MED ONCE IV ; Start 10/14/19 at 12:27; Stop 10/14/19 at 12:28; Status DC Lidocaine HCl (Lidocaine Pf 2% Vial) 5 ml STK-MED ONCE .ROUTE ; Start 10/14/19 at 12:27; Stop 10/14/19 at 12:28; Status DC Fentanyl Citrate (Fentanyl 2ml Vial) 100 mcg STK-MED ONCE .ROUTE ; Start 10/14/19 at 12:49; Stop 10/14/19 at 12:49; Status DC Glycopyrrolate (Robinul) 1 mg STK-MED ONCE .ROUTE ; Start 10/14/19 at 13:02; Stop 10/14/19 at 13:02; Status DC Neostigmine Methylsulfate (Neostigmine Methylsulfate) 5 mg STK-MED ONCE .ROUTE ; Start 10/14/19 at 13:02; Stop 10/14/19 at 13:02; Status DC Enoxaparin Sodium (Lovenox 40mg Syringe) 40 mg Q24H SQ ; Start 10/14/19 at 13:30; Status UNV Sodium Chloride (Normal Saline Flush) 3 ml QSHIFT PRN IV AFTER MEDS AND BLOOD DRAWS; Start 10/14/19 at 13:30 Ringer's Solution 1,000 ml @ 100 mls/hr Q10H IV ; Start 10/14/19 at 13:25; Stop 10/15/19 at 07:42; Status DC Acetaminophen/ Hydrocodone Bitart (Lortab 5/325) 1 tab PRN Q4HRS PRN PO MODERATE PAIN Last administered on 10/17/19at 20:02; Start 10/14/19 at 13:30 Naloxone HCl (Narcan) 0.4 mg PRN Q2MIN PRN IV SEE INSTRUCTIONS; Start 10/14/19 at 13:30 Sodium Chloride 1,000 ml @ 25 mls/hr Q24H IV ; Start 10/14/19 at 13:25; Stop 10/17/19 at 10:58; Status DC Morphine Sulfate (Morphine Sulfate) 1 mg PRN Q1HR PRN IV SEVERE PAIN, 2nd CHOICE; Start 10/14/19 at 13:30 Ondansetron HCl (Zofran) 4 mg PRN Q6HRS PRN IVP NAUESA, 1ST CHOICE; Start 10/14/19 at 13:30 Polyethylene Glycol (miraLAX PACKET) 17 gm DAILY PO Last administered on 10/16/19at 08:26; Start 10/16/19 at 09:00 Polyethylene Glycol (miraLAX PACKET) 17 gm 1X ONCE PO Last administered on 10/15/19at 16:06; Start 10/15/19 at 13:00; Stop 10/15/19 at 13:20; Status DC Docusate Sodium (Colace) 100 mg DAILY PO Last administered on 10/17/19at 07:57; Start 10/15/19 at 14:00 Docusate Sodium (Colace) 100 mg PRN DAILY PRN PO CONSTIPATION; Start 10/15/19 at 13:00 Magnesium Hydroxide (Milk Of Magnesia) 2,400 mg PRN DAILY PRN PO CONSTIPATION; Start 10/15/19 at 13:00 Phenyleph/Shark Oil/Min Oil/Petrol (Preparation H) 1 tarun PRN QID PRN RC RECTAL PAIN; Start 10/15/19 at 13:00 Lactobacillus Rhamnosus (Culturelle) 1 cap BID PO Last administered on 10/18/19at 07:34; Start 10/15/19 at 21:00 Potassium Chloride (Klor-Con) 20 meq DAILYWBKFT PO Last administered on 10/18/19at 07:34; Start 10/18/19 at 08:00 Potassium Chloride (Klor-Con) 40 meq 1X ONCE PO Last administered on 10/17/19at 09:28; Start 10/17/19 at 09:30; Stop 10/17/19 at 09:31; Status DC Iohexol (Omnipaque 300 Mg/ml) 75 ml 1X ONCE IV ; Start 10/17/19 at 10:30; Stop 10/17/19 at 10:31; Status DC Iohexol (Omnipaque 240 Mg/ml) 50 ml 1X ONCE PO Last administered on 10/17/19at 10:30; Start 10/17/19 at 10:30; Stop 10/17/19 at 10:31; Status DC Info (CONTRAST GIVEN -- Rx MONITORING) 1 each PRN DAILY PRN MC SEE COMMENTS; S tart 10/17/19 at 10:30; Stop 10/19/19 at 10:29 Potassium Chloride/Water 100 ml @ 100 mls/hr Q1H IV Last administered on 10/17at 16:10; Start 10/17/19 at 14:00; Stop 10/17/19 at 15:59; Status DC Magnesium Sulfate/ Dextrose 100 ml @ 100 mls/hr 1X ONCE IV Last administered on 10/17/19at 13:55; Start 10/17/19 at 13:30; Stop 10/17/19 at 14:29; Status DC Potassium Chloride (Klor-Con) 40 meq 1X ONCE PO Last administered on 10/18/19at 11:09; Start 10/18/19 at 10:15; Stop 10/18/19 at 10:20; Status DC Active Scripts Active Reported Effexor Xr (Venlafaxine Hcl) 75 Mg Cap.er.24h 1 Cap PO DAILY Vitals/I & O Vital Sign - Last 24 Hours 10/17/19 10/17/19 10/17/19 10/18/19 19:00 20:00 23:00 03:00 Temp 97.9 98.1 98.1 97.9 98.1 98.1 Pulse 77 76 80 Resp 18 18 18 B/P (MAP) 137/86 (103) 119/66 (83) 116/73 (87) Pulse Ox 94 91 91 O2 Delivery Room Air Room Air Room Air Room Air 10/18/19 10/18/19 10/18/19 12/15/19 07:00 07:05 11:00 15:00 Temp 98.1 97.8 97.5 98.1 97.8 97.5 Pulse 84 69 75 Resp 16 18 18 B/P (MAP) 115/71 (86) 104/59 (74) 99/62 (74) Pulse Ox 95 95 96 O2 Delivery Room Air Room Air Room Air Room Air Intake and Output 10/17/19 10/17/19 10/18/19 15:00 23:00 07:00 Intake Total 400 ml 440 ml 100 ml Output Total 0 ml Balance 400 ml 440 ml 100 ml Hemodynamically unstable?: No Is patient in severe pain?: Yes Justification for admission: acute appy and sepsis Is NPO status required?: Yes ROBERTO CARLOS MEANS MD Oct 18, 2019 15:24
[2019-10-18] MEDS: KETOROLAC 30 MG/ML VIAL. IVP PRN (17:03)
[2019-10-18 19:00] VITALS: BP 127/80
[2019-10-18] MEDS: HYDROcodone/APAP 5/325MG 1 TAB TABLET PO PRN (21:13)
[2019-10-18 23:00] VITALS: BP 120/72
[2019-10-19] MEDS: PIPERACILLIN/TAZOBACTAM 3.375 GM in IV NORMAL SALINE 50ML 50 ML IV SCH ×2 (00:25→06:27)
[2019-10-19 03:00] VITALS: BP 98/61
[2019-10-19 05:22] LABS: BASO % 1 % (0-3); EOS # 0.2 x10^3/uL (0.0-0.7); EOS % 6 % (0-3); HEMATOCRIT 29.8 % (36.0-47.0); HEMOGLOBIN 10.2 g/dL (12.0-15.5); LYMPH # 1.2 x10^3/uL (1.0-4.8); LYMPH % 32 % (24-48); MEAN CORPUSCULAR HEMOGLOBIN 33 pg (25-35); MEAN CORPUSCULAR HGB CONC 34 g/dL (31-37); MEAN CORPUSCULAR VOLUME 96 fL (79-100); MONO # 0.4 x10^3/uL (0.0-1.1); MONO % 12 % (0-9); NEUT # 1.8 x10^3/uL (1.8-7.7); NEUT % 50 % (31-73); PLATELET COUNT 232 x10^3/uL (140-400); RED CELL DISTRIBUTION WIDTH 13.6 % (11.5-14.5); WHITE BLOOD COUNT 3.7 x10^3/uL (4.0-11.0)
[2019-10-19 05:47] LABS: ALBUMIN 1.9 g/dL (3.4-5.0); ALBUMIN/GLOBULIN RATIO 0.5 (1.0-1.7); ALK PHOS 66 U/L (46-116); ANION GAP 10 (6-14); AST (SGOT) 5 U/L (15-37); BLOOD UREA NITROGEN 9 mg/dL (7-20); BUN/CREATININE RATIO 18 (6-20); CARBON DIOXIDE 27 mmol/L (21-32); CHLORIDE 108 mmol/L (98-107); CREATININE 0.5 mg/dL (0.6-1.0); GLUCOSE 97 mg/dL (70-99); POTASSIUM 4.2 mmol/L (3.5-5.1); SODIUM 145 mmol/L (136-145); TOTAL BILIRUBIN 0.2 mg/dL (0.2-1.0); TOTAL PROTEIN 5.9 g/dL (6.4-8.2)
[2019-10-19 05:50] LABS: ALT (SGPT) < 6 U/L (14-59)
[2019-10-19 07:00] VITALS: BP 115/71
[2019-10-19] MEDS: POTASSIUM CHLORIDE 20 MEQ TABLET.ER. PO SCH (08:43)
[2019-10-19] MEDS: LACTOBACILLUS RHAMNOSUS GG 1 CAPSULE. PO SCH (08:43)
[2019-10-19] MEDS: VENLAFAXINE XR 37.5 MG CAP.ER.24H. PO SCH (08:43)
[2019-10-19] MEDS: ENOXAPARIN 40 MG/0.4 ML SYRINGE. SQ SCH (08:44)
[2019-10-19] MEDS: POLYETHYLENE GLYCOL 3350 17 GM PACKET. PO SCH (08:45)
[2019-10-19] MEDS: DOCUSATE SODIUM 100 MG CAPSULE. PO SCH (08:45)
[2019-10-19] MEDS ORDERED: AMOX1TAB58 PO (09:03)
[2019-10-19] MEDS ORDERED: HYDR-2761 PO (09:03)
--- NOTE | 2019-10-19 09:05 | PDOC3 ---
Discharge Summary Visit Information Date of Admission: Oct 14, 2019 Date of Discharge: Oct 19, 2019 Admitting Diagnosis Comment: ruptured appy\ post op small abscess Brief Hospital Course Allergies Allergies Coded Allergies Type Severity Reaction Last Updated Verified No Known Drug Allergies 10/14/19 No Vital Signs Vital Signs Date Time Temp Pulse Resp B/P (MAP) Pulse Ox O2 Delivery O2 Flow Rate FiO2 10/19/19 07:15 Room Air 10/19/19 07:00 97.5 67 16 115/71 (86) 94 97.5 Lab Results Laboratory Tests Test 10/18/19 05:35 10/19/19 04:55 Sodium Level 142 mmol/L (136-145) 145 mmol/L (136-145) Potassium Level 3.3 mmol/L (3.5-5.1) 4.2 mmol/L (3.5-5.1) Chloride Level 106 mmol/L (98-107) 108 mmol/L (98-107) Carbon Dioxide Level 25 mmol/L (21-32) 27 mmol/L (21-32) Anion Gap 11 (6-14) 10 (6-14) Blood Urea Nitrogen 9 mg/dL (7-20) 9 mg/dL (7-20) Creatinine 0.5 mg/dL (0.6-1.0) 0.5 mg/dL (0.6-1.0) Estimated GFR (Cockcroft-Gault) 134.0 134.0 Glucose Level 97 mg/dL (70-99) 97 mg/dL (70-99) Calcium Level 7.7 mg/dL (8.5-10.1) 8.0 mg/dL (8.5-10.1) White Blood Count 3.7 x10^3/uL (4.0-11.0) Red Blood Count 3.10 x10^6/uL (3.50-5.40) Hemoglobin 10.2 g/dL (12.0-15.5) Hematocrit 29.8 % (36.0-47.0) Mean Corpuscular Volume 96 fL (79-100) Mean Corpuscular Hemoglobin 33 pg (25-35) Mean Corpuscular Hemoglobin Concent 34 g/dL (31-37) Red Cell Distribution Width 13.6 % (11.5-14.5) Platelet Count 232 x10^3/uL (140-400) Neutrophils (%) (Auto) 50 % (31-73) Lymphocytes (%) (Auto) 32 % (24-48) Monocytes (%) (Auto) 12 % (0-9) Eosinophils (%) (Auto) 6 % (0-3) Basophils (%) (Auto) 1 % (0-3) Neutrophils # (Auto) 1.8 x10^3/uL (1.8-7.7) Lymphocytes # (Auto) 1.2 x10^3/uL (1.0-4.8) Monocytes # (Auto) 0.4 x10^3/uL (0.0-1.1) Eosinophils # (Auto) 0.2 x10^3/uL (0.0-0.7) Basophils # (Auto) 0.0 x10^3/uL (0.0-0.2) BUN/Creatinine Ratio 18 (6-20) Total Bilirubin 0.2 mg/dL (0.2-1.0) Aspartate Amino Transf (AST/SGOT) 5 U/L (15-37) Alanine Aminotransferase (ALT/SGPT) < 6 U/L (14-59) Alkaline Phosphatase 66 U/L (46-116) Total Protein 5.9 g/dL (6.4-8.2) Albumin 1.9 g/dL (3.4-5.0) Albumin/Globulin Ratio 0.5 (1.0-1.7) Laboratory Tests Test 10/19/19 04:55 White Blood Count 3.7 x10^3/uL (4.0-11.0) Red Blood Count 3.10 x10^6/uL (3.50-5.40) Hemoglobin 10.2 g/dL (12.0-15.5) Hematocrit 29.8 % (36.0-47.0) Mean Corpuscular Volume 96 fL (79-100) Mean Corpuscular Hemoglobin 33 pg (25-35) Mean Corpuscular Hemoglobin Concent 34 g/dL (31-37) Red Cell Distribution Width 13.6 % (11.5-14.5) Platelet Count 232 x10^3/uL (140-400) Neutrophils (%) (Auto) 50 % (31-73) Lymphocytes (%) (Auto) 32 % (24-48) Monocytes (%) (Auto) 12 % (0-9) Eosinophils (%) (Auto) 6 % (0-3) Basophils (%) (Auto) 1 % (0-3) Neutrophils # (Auto) 1.8 x10^3/uL (1.8-7.7) Lymphocytes # (Auto) 1.2 x10^3/uL (1.0-4.8) Monocytes # (Auto) 0.4 x10^3/uL (0.0-1.1) Eosinophils # (Auto) 0.2 x10^3/uL (0.0-0.7) Basophils # (Auto) 0.0 x10^3/uL (0.0-0.2) Sodium Level 145 mmol/L (136-145) Potassium Level 4.2 mmol/L (3.5-5.1) Chloride Level 108 mmol/L (98-107) Carbon Dioxide Level 27 mmol/L (21-32) Anion Gap 10 (6-14) Blood Urea Nitrogen 9 mg/dL (7-20) Creatinine 0.5 mg/dL (0.6-1.0) Estimated GFR (Cockcroft-Gault) 134.0 BUN/Creatinine Ratio 18 (6-20) Glucose Level 97 mg/dL (70-99) Calcium Level 8.0 mg/dL (8.5-10.1) Total Bilirubin 0.2 mg/dL (0.2-1.0) Aspartate Amino Transf (AST/SGOT) 5 U/L (15-37) Alanine Aminotransferase (ALT/SGPT) < 6 U/L (14-59) Alkaline Phosphatase 66 U/L (46-116) Total Protein 5.9 g/dL (6.4-8.2) Albumin 1.9 g/dL (3.4-5.0) Albumin/Globulin Ratio 0.5 (1.0-1.7) Brief Hospital Course Ms. Pompa is a 44 old female admitted for ruptured appy, underwent sx but post p developed small abscess on CT, BUT she eventually did well post op course, no IR drains needed to be done, SO stable for hoem today, minimal narcotic requirement. FF up GS usually in 2 weeks Proc; lap appy COnsults; GS Discharge Information Condition at Discharge: Improved, Stable Follow Up: Weeks (2 weeks gs) Disposition/Orders: D/C to Home Scheduled Amoxicillin/Potassium Clav (Augmentin 500-125 Tablet) 1 Each Tablet, 1 TAB PO BID for ruptured appy for 7 Days, #14 Ref 0 Prescribed by: MIMA GUILLEN on 10/19/19902 Venlafaxine Hcl (Effexor Xr) 75 Mg Cap.er.24h, 1 CAP PO DAILY for anxiety, #30 Ref 1 (Reported) Entered as Reported by: SAI CONKLIN RN on 10/14/19219 Last Taken: UNKNOWN on Unknown Date & Time Last Action: Converted on 10/14/19853 by AKIN PICKETT Scheduled PRN Hydrocodone Bit/Acetaminophen (Hydrocodone-Apap 5-325 ) 1 Tab Tablet, 1 TAB PO PRN Q4HRS PRN for MODERATE PAIN, #15 Prescribed by: MIMA GUILLEN on 10/19/19902 Hemodynamically unstable?: No Is patient in severe pain?: Yes Justification for admission: acute appy and sepsis Is NPO status required?: Yes MIMA GUILLEN MD Oct 19, 2019 09:05
--- NOTE | 2019-10-19 09:38 | PDOC ---
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 Objective Objective Vital Signs Date Time Temp Pulse Resp B/P (MAP) Pulse Ox O2 Delivery O2 Flow Rate FiO2 10/19/19 07:15 Room Air 10/19/19 07:00 97.5 67 16 115/71 (86) 94 97.5 10/16/19 11:00 2.0 Intake and Output 10/19/19 07:00 Intake Total 900 ml Balance 900 ml Intake Oral 480 ml Other 420 ml # Voids 2 Physical Exam Physical Exam S/NT/ND Assessment Assessment Assessment: 44y s/p lap appy for a perforated appendicitis on 10/14/19 Plan: 1.) Vaginal bleeding still with just spotting, no intervention indicated at this time, if continues for a wk after d/c should follow up with primary customer service specialist on outpt basis 2.) Unicornate uterus 3.) PCOS 4.) RLQ pain 2 cm fluid collection seen on CT, Gen Surg following 5.) POD #5 s/p lap Appy 6.) Sepsis on Flagyl and Zosyn 7.) H/o depression, - on Effexaor 8.) Will continue to follow Comment Review of Relevant I have reviewed the following items marquis (where applicable) has been applied. Labs Laboratory Tests Test 10/18/19 05:35 10/19/19 04:55 Sodium Level 142 mmol/L (136-145) 145 mmol/L (136-145) Potassium Level 3.3 mmol/L (3.5-5.1) 4.2 mmol/L (3.5-5.1) Chloride Level 106 mmol/L (98-107) 108 mmol/L (98-107) Carbon Dioxide Level 25 mmol/L (21-32) 27 mmol/L (21-32) Anion Gap 11 (6-14) 10 (6-14) Blood Urea Nitrogen 9 mg/dL (7-20) 9 mg/dL (7-20) Creatinine 0.5 mg/dL (0.6-1.0) 0.5 mg/dL (0.6-1.0) Estimated GFR (Cockcroft-Gault) 134.0 134.0 Glucose Level 97 mg/dL (70-99) 97 mg/dL (70-99) Calcium Level 7.7 mg/dL (8.5-10.1) 8.0 mg/dL (8.5-10.1) White Blood Count 3.7 x10^3/uL (4.0-11.0) Red Blood Count 3.10 x10^6/uL (3.50-5.40) Hemoglobin 10.2 g/dL (12.0-15.5) Hematocrit 29.8 % (36.0-47.0) Mean Corpuscular Volume 96 fL (79-100) Mean Corpuscular Hemoglobin 33 pg (25-35) Mean Corpuscular Hemoglobin Concent 34 g/dL (31-37) Red Cell Distribution Width 13.6 % (11.5-14.5) Platelet Count 232 x10^3/uL (140-400) Neutrophils (%) (Auto) 50 % (31-73) Lymphocytes (%) (Auto) 32 % (24-48) Monocytes (%) (Auto) 12 % (0-9) Eosinophils (%) (Auto) 6 % (0-3) Basophils (%) (Auto) 1 % (0-3) Neutrophils # (Auto) 1.8 x10^3/uL (1.8-7.7) Lymphocytes # (Auto) 1.2 x10^3/uL (1.0-4.8) Monocytes # (Auto) 0.4 x10^3/uL (0.0-1.1) Eosinophils # (Auto) 0.2 x10^3/uL (0.0-0.7) Basophils # (Auto) 0.0 x10^3/uL (0.0-0.2) BUN/Creatinine Ratio 18 (6-20) Total Bilirubin 0.2 mg/dL (0.2-1.0) Aspartate Amino Transf (AST/SGOT) 5 U/L (15-37) Alanine Aminotransferase (ALT/SGPT) < 6 U/L (14-59) Alkaline Phosphatase 66 U/L (46-116) Total Protein 5.9 g/dL (6.4-8.2) Albumin 1.9 g/dL (3.4-5.0) Albumin/Globulin Ratio 0.5 (1.0-1.7) Laboratory Tests Test 10/19/19 04:55 White Blood Count 3.7 x10^3/uL (4.0-11.0) Red Blood Count 3.10 x10^6/uL (3.50-5.40) Hemoglobin 10.2 g/dL (12.0-15.5) Hematocrit 29.8 % (36.0-47.0) Mean Corpuscular Volume 96 fL (79-100) Mean Corpuscular Hemoglobin 33 pg (25-35) Mean Corpuscular Hemoglobin Concent 34 g/dL (31-37) Red Cell Distribution Width 13.6 % (11.5-14.5) Platelet Count 232 x10^3/uL (140-400) Neutrophils (%) (Auto) 50 % (31-73) Lymphocytes (%) (Auto) 32 % (24-48) Monocytes (%) (Auto) 12 % (0-9) Eosinophils (%) (Auto) 6 % (0-3) Basophils (%) (Auto) 1 % (0-3) Neutrophils # (Auto) 1.8 x10^3/uL (1.8-7.7) Lymphocytes # (Auto) 1.2 x10^3/uL (1.0-4.8) Monocytes # (Auto) 0.4 x10^3/uL (0.0-1.1) Eosinophils # (Auto) 0.2 x10^3/uL (0.0-0.7) Basophils # (Auto) 0.0 x10^3/uL (0.0-0.2) Sodium Level 145 mmol/L (136-145) Potassium Level 4.2 mmol/L (3.5-5.1) Chloride Level 108 mmol/L (98-107) Carbon Dioxide Level 27 mmol/L (21-32) Anion Gap 10 (6-14) Blood Urea Nitrogen 9 mg/dL (7-20) Creatinine 0.5 mg/dL (0.6-1.0) Estimated GFR (Cockcroft-Gault) 134.0 BUN/Creatinine Ratio 18 (6-20) Glucose Level 97 mg/dL (70-99) Calcium Level 8.0 mg/dL (8.5-10.1) Total Bilirubin 0.2 mg/dL (0.2-1.0) Aspartate Amino Transf (AST/SGOT) 5 U/L (15-37) Alanine Aminotransferase (ALT/SGPT) < 6 U/L (14-59) Alkaline Phosphatase 66 U/L (46-116) Total Protein 5.9 g/dL (6.4-8.2) Albumin 1.9 g/dL (3.4-5.0) Albumin/Globulin Ratio 0.5 (1.0-1.7) Medications Current Medications Sodium Chloride 1,000 ml @ 100 mls/hr Q10H IV Last administered on 10/16/19at 05:52; Start 10/14/19 at 03:00; Stop 10/16/19 at 13:12; Status DC Ondansetron HCl (Zofran) 4 mg PRN Q4HRS PRN IV NAUSEA/VOMITING 1ST CHOICE; Start 10/14/19 at 02:30; Stop 10/14/19 at 13:44; Status DC Zolpidem Tartrate (Ambien) 5 mg PRN QHS PRN PO INSOMNIA; Start 10/14/19 at 02:30 Acetaminophen (Tylenol) 650 mg PRN Q4HRS PRN PO TEMP OVER 100.4F OR MILD PAIN Last administered on 10/18/19at 07:34; Start 10/14/19 at 02:30 Diphenhydramine HCl (Benadryl) 25 mg PRN Q4HRS PRN IVP ITCHING; Start 10/14/19 at 02:30 Enoxaparin Sodium (Lovenox 40mg Syringe) 40 mg DAILY SQ Last administered on 10/19/19at 08:44; Start 10/14/19 at 09:00 Piperacillin Sod/ Tazobactam Sod 3.375 gm/Sodium Chloride 50 ml @ 100 mls/hr Q6HRS IV Last administered on 10/19/19at 06:27; Start 10/14/19 at 06:00 Metronidazole 100 ml @ 100 mls/hr Q8HRS IV Last administered on 10/14/19at 14:33; Start 10/14/19 at 06:00; Stop 10/14/19 at 17:01; Status DC Ketorolac Tromethamine (Toradol 30mg Vial) 30 mg PRN Q6HRS PRN IVP MODERATE PAIN 4-6 Last administered on 10/18/19at 17:03; Start 10/14/19 at 02:30; Stop 10/18/19 at 17:07; Status DC Hydromorphone HCl (Dilaudid) 1 mg PRN Q4HRS PRN IV SEVERE PAIN 7-10 Last administered on 10/14/19at 07:36; Start 10/14/19 at 02:30 Venlafaxine HCl (Effexor Xr) 75 mg DAILY PO Last administered on 10/19/19at 08:43; Start 10/14/19 at 09:00 Sodium Chloride 1,000 ml @ 1,000 mls/hr 1X ONCE IV ; Start 10/14/19 at 09:00; Stop 10/14/19 at 09:59; Status DC Ondansetron HCl (Zofran) 4 mg PRN Q6HRS PRN IV NAUSEA/VOMITING; Start 10/14/19 at 11:15; Stop 10/14/19 at 13:44; Status DC Fentanyl Citrate (Fentanyl 2ml Vial) 25 mcg PRN Q5MIN PRN IV MILD PAIN 1-3; Start 10/14/19 at 11:15; Stop 10/14/19 at 13:44; Status DC Fentanyl Citrate (Fentanyl 2ml Vial) 50 mcg PRN Q5MIN PRN IV MODERATE TO SEVERE PAIN Last administered on 10/14/19at 13:34; Start 10/14/19 at 11:15; Stop 10/14/19 at 13:44; Status DC Morphine Sulfate (Morphine Sulfate) 1 mg PRN Q10MIN PRN IV SEVERE PAIN 7-10 Last administered on 10/14/19at 14:32; Start 10/14/19 at 11:15; Stop 10/15/19 at 11:14; Status DC Ringer's Solution 1,000 ml @ 30 mls/hr Q24H IV ; Start 10/14/19 at 11:09; Stop 10/14/19 at 13:44; Status DC Hydromorphone HCl (Dilaudid) 0.5 mg PRN Q10MIN PRN IV SEV PAIN, Second choice; Start 10/14/19 at 11:15; Stop 10/14/19 at 13:44; Status DC Prochlorperazine Edisylate (Compazine) 5 mg PACU PRN PRN IV NAUSEA, MRX1; Start 10/14/19 at 11:15; Stop 10/14/19 at 13:44; Status DC Fentanyl Citrate (Fentanyl 2ml Vial) 100 mcg STK-MED ONCE .ROUTE ; Start 10/14/19 at 11:37; Stop 10/14/19 at 11:37; Status DC Rocuronium [place] (Zemuron) 50 mg STK-MED ONCE .ROUTE ; Start 10/14/19 at 11:44; Stop 10/14/19 at 11:44; Status DC Bupivacaine HCl/ Epinephrine Bitart (Sensorcain-Epi 0.5%-1:909433 Mpf) 30 ml 1X ONCE INJ Last administered on 10/14/19at 12:37; Start 10/14/19 at 12:00; Stop 10/14/19 at 12:01; Status DC Phenylephrine HCl (PHENYLEPHRINE in 0.9% NACL PF) 1 mg STK-MED ONCE IV ; Start 10/14/19 at 12:27; Stop 10/14/19 at 12:27; Status DC Dexamethasone Sodium Phosphate (Decadron) 4 mg STK-MED ONCE .ROUTE ; Start 10/14/19 at 12:27; Stop 10/14/19 at 12:28; Status DC Ondansetron HCl (Zofran) 4 mg STK-MED ONCE .ROUTE ; Start 10/14/19 at 12:27; Stop 10/14/19 at 12:28; Status DC Propofol 20 ml @ As Directed STK-MED ONCE IV ; Start 10/14/19 at 12:27; Stop 10/14/19 at 12:28; Status DC Lidocaine HCl (Lidocaine Pf 2% Vial) 5 ml STK-MED ONCE .ROUTE ; Start 10/14/19 at 12:27; Stop 10/14/19 at 12:28; Status DC Fentanyl Citrate (Fentanyl 2ml Vial) 100 mcg STK-MED ONCE .ROUTE ; Start 10/14/19 at 12:49; Stop 10/14/19 at 12:49; Status DC Glycopyrrolate (Robinul) 1 mg STK-MED ONCE .ROUTE ; Start 10/14/19 at 13:02; Stop 10/14/19 at 13:02; Status DC Neostigmine Methylsulfate (Neostigmine Methylsulfate) 5 mg STK-MED ONCE .ROUTE ; Start 10/14/19 at 13:02; Stop 10/14/19 at 13:02; Status DC Enoxaparin Sodium (Lovenox 40mg Syringe) 40 mg Q24H SQ ; Start 10/14/19 at 13:30; Status UNV Sodium Chloride (Normal Saline Flush) 3 ml QSHIFT PRN IV AFTER MEDS AND BLOOD DRAWS; Start 10/14/19 at 13:30 Ringer's Solution 1,000 ml @ 100 mls/hr Q10H IV ; Start 10/14/19 at 13:25; Stop 10/15/19 at 07:42; Status DC Acetaminophen/ Hydrocodone Bitart (Lortab 5/325) 1 tab PRN Q4HRS PRN PO MODERATE PAIN Last administered on 10/18/19at 21:13; Start 10/14/19 at 13:30 Naloxone HCl (Narcan) 0.4 mg PRN Q2MIN PRN IV SEE INSTRUCTIONS; Start 10/14/19 at 13:30 Sodium Chloride 1,000 ml @ 25 mls/hr Q24H IV ; Start 10/14/19 at 13:25; Stop 10/17/19 at 10:58; Status DC Morphine Sulfate (Morphine Sulfate) 1 mg PRN Q1HR PRN IV SEVERE PAIN, 2nd CHOICE; Start 10/14/19 at 13:30 Ondansetron HCl (Zofran) 4 mg PRN Q6HRS PRN IVP NAUESA, 1ST CHOICE; Start 10/14/19 at 13:30 Polyethylene Glycol (miraLAX PACKET) 17 gm DAILY PO Last administered on 10/16/19at 08:26; Start 10/16/19 at 09:00 Polyethylene Glycol (miraLAX PACKET) 17 gm 1X ONCE PO Last administered on 10/15/19at 16:06; Start 10/15/19 at 13:00; Stop 10/15/19 at 13:20; Status DC Docusate Sodium (Colace) 100 mg DAILY PO Last administered on 10/17/19at 07:57; Start 10/15/19 at 14:00 Docusate Sodium (Colace) 100 mg PRN DAILY PRN PO CONSTIPATION; Start 10/15/19 at 13:00 Magnesium Hydroxide (Milk Of Magnesia) 2,400 mg PRN DAILY PRN PO CONSTIPATION; Start 10/15/19 at 13:00 Phenyleph/Shark Oil/Min Oil/Petrol (Preparation H) 1 tarun PRN QID PRN RC RECTAL PAIN; Start 10/15/19 at 13:00 Lactobacillus Rhamnosus (Culturelle) 1 cap BID PO Last administered on at 08:43; Start 10/15/19 at 21:00 Potassium Chloride (Klor-Con) 20 meq DAILYWBKFT PO Last administered on 10/19/19at 08:43; Start 10/18/19 at 08:00 Potassium Chloride (Klor-Con) 40 meq 1X ONCE PO Last administered on 10/17/19at 09:28; Start 10/17/19 at 09:30; Stop 10/17/19 at 09:31; Status DC Iohexol (Omnipaque 300 Mg/ml) 75 ml 1X ONCE IV ; Start 10/17/19 at 10:30; Stop 10/17/19 at 10:31; Status DC Iohexol (Omnipaque 240 Mg/ml) 50 ml 1X ONCE PO Last administered on 10/17/19at 10:30; Start 10/17/19 at 10:30; Stop 10/17/19 at 10:31; Status DC Info (CONTRAST GIVEN -- Rx MONITORING) 1 each PRN DAILY PRN MC SEE COMMENTS; Start 10/17/19 at 10:30; Stop 10/19/19 at 10:29 Potassium Chloride/Water 100 ml @ 100 mls/hr Q1H IV Last administered on 10/17/19at 16:10; Start 10/17/19 at 14:00; Stop 10/17/19 at 15:59; Status DC Magnesium Sulfate/ Dextrose 100 ml @ 100 mls/hr 1X ONCE IV Last administered on 10/17/19at 13:55; Start 10/17/19 at 13:30; Stop 10/17/19 at 14:29; Status DC Potassium Chloride (Klor-Con) 40 meq 1X ONCE PO Last administered on 10/18/19at 11:09; Start 10/18/19 at 10:15; Stop 10/18/19 at 10:20; Status DC Active Scripts Active Augmentin 500-125 Tablet (Amoxicillin/Potassium Clav) 1 Each Tablet 1 Tab PO BID 7 Days Hydrocodone-Apap 5-325 (Hydrocodone Bit/Acetaminophen) 1 Tab Tablet 1 Tab PO PRN Q4HRS PRN Reported Effexor Xr (Venlafaxine Hcl) 75 Mg Cap.er.24h 1 Cap PO DAILY Vitals/I & O Vital Sign - Last 24 Hours 10/18/19 10/18/19 10/18/19 10/18/19 11:00 15:00 19:00 19:40 Temp 97.8 97.5 97.7 97.8 97.5 97.7 Pulse 69 75 73 Resp 18 18 18 B/P (MAP) 104/59 (74) 99/62 (74) 127/80 (96) Pulse Ox 95 96 94 O2 Delivery Room Air Room Air Room Air Room Air 10/18/19 10/18/19 10/18/19 10/19/19 21:13 22:13 23:00 03:00 Temp 97.8 97.5 97.8 97.5 Pulse 72 63 Resp 20 20 18 18 B/P (MAP) 120/72 (88) 98/61 (73) Pulse Ox 94 96 O2 Delivery Room Air Room Air Room Air Room Air 10/19/19 10/19/19 07:00 07:15 Temp 97.5 97.5 Pulse 67 Resp 16 B/P (MAP) 115/71 (86) Pulse Ox 94 O2 Delivery Room Air Room Air Intake and Output 10/18/19 10/18/19 10/19/19 15:00 23:00 07:00 Intake Total 240 ml 660 ml Balance 240 ml 660 ml Hemodynamically unstable?: No Is patient in severe pain?: Yes Justification for admission: acute appy and sepsis Is NPO status required?: Yes ROBERTO CARLOS MEANS MD Oct 19, 2019 09:38
[2019-10-19 11:00] VITALS: BP 124/84
--- NOTE | 2019-10-19 11:34 | PDOC ---
SURGICAL PROGRESS NOTE Subjective feels well tolerating diet wants to go home Vital Signs Vital Signs Date Time Temp Pulse Resp B/P (MAP) Pulse Ox O2 Delivery O2 Flow Rate FiO2 10/19/19 07:15 Room Air 10/19/19 07:00 97.5 67 16 115/71 (86) 94 97.5 I&O Intake and Output 10/19/19 06:59 Intake Total 900 ml Balance 900 ml Intake Oral 480 ml Other 420 ml # Voids 2 General: Alert, Oriented X3, Cooperative Abdomen: Soft, No tenderness Labs Laboratory Tests Test 10/18/19 05:35 10/19/19 04:55 Sodium Level 142 mmol/L (136-145) 145 mmol/L (136-145) Potassium Level 3.3 mmol/L (3.5-5.1) 4.2 mmol/L (3.5-5.1) Chloride Level 106 mmol/L (98-107) 108 mmol/L (98-107) Carbon Dioxide Level 25 mmol/L (21-32) 27 mmol/L (21-32) Anion Gap 11 (6-14) 10 (6-14) Blood Urea Nitrogen 9 mg/dL (7-20) 9 mg/dL (7-20) Creatinine 0.5 mg/dL (0.6-1.0) 0.5 mg/dL (0.6-1.0) Estimated GFR (Cockcroft-Gault) 134.0 134.0 Glucose Level 97 mg/dL (70-99) 97 mg/dL (70-99) Calcium Level 7.7 mg/dL (8.5-10.1) 8.0 mg/dL (8.5-10.1) White Blood Count 3.7 x10^3/uL (4.0-11.0) Red Blood Count 3.10 x10^6/uL (3.50-5.40) Hemoglobin 10.2 g/dL (12.0-15.5) Hematocrit 29.8 % (36.0-47.0) Mean Corpuscular Volume 96 fL (79-100) Mean Corpuscular Hemoglobin 33 pg (25-35) Mean Corpuscular Hemoglobin Concent 34 g/dL (31-37) Red Cell Distribution Width 13.6 % (11.5-14.5) Platelet Count 232 x10^3/uL (140-400) Neutrophils (%) (Auto) 50 % (31-73) Lymphocytes (%) (Auto) 32 % (24-48) Monocytes (%) (Auto) 12 % (0-9) Eosinophils (%) (Auto) 6 % (0-3) Basophils (%) (Auto) 1 % (0-3) Neutrophils # (Auto) 1.8 x10^3/uL (1.8-7.7) Lymphocytes # (Auto) 1.2 x10^3/uL (1.0-4.8) Monocytes # (Auto) 0.4 x10^3/uL (0.0-1.1) Eosinophils # (Auto) 0.2 x10^3/uL (0.0-0.7) Basophils # (Auto) 0.0 x10^3/uL (0.0-0.2) BUN/Creatinine Ratio 18 (6-20) Total Bilirubin 0.2 mg/dL (0.2-1.0) Aspartate Amino Transf (AST/SGOT) 5 U/L (15-37) Alanine Aminotransferase (ALT/SGPT) < 6 U/L (14-59) Alkaline Phosphatase 66 U/L (46-116) Total Protein 5.9 g/dL (6.4-8.2) Albumin 1.9 g/dL (3.4-5.0) Albumin/Globulin Ratio 0.5 (1.0-1.7) Laboratory Tests Test 10/19/19 04:55 White Blood Count 3.7 x10^3/uL (4.0-11.0) Red Blood Count 3.10 x10^6/uL (3.50-5.40) Hemoglobin 10.2 g/dL (12.0-15.5) Hematocrit 29.8 % (36.0-47.0) Mean Corpuscular Volume 96 fL (79-100) Mean Corpuscular Hemoglobin 33 pg (25-35) Mean Corpuscular Hemoglobin Concent 34 g/dL (31-37) Red Cell Distribution Width 13.6 % (11.5-14.5) Platelet Count 232 x10^3/uL (140-400) Neutrophils (%) (Auto) 50 % (31-73) Lymphocytes (%) (Auto) 32 % (24-48) Monocytes (%) (Auto) 12 % (0-9) Eosinophils (%) (Auto) 6 % (0-3) Basophils (%) (Auto) 1 % (0-3) Neutrophils # (Auto) 1.8 x10^3/uL (1.8-7.7) Lymphocytes # (Auto) 1.2 x10^3/uL (1.0-4.8) Monocytes # (Auto) 0.4 x10^3/uL (0.0-1.1) Eosinophils # (Auto) 0.2 x10^3/uL (0.0-0.7) Basophils # (Auto) 0.0 x10^3/uL (0.0-0.2) Sodium Level 145 mmol/L (136-145) Potassium Level 4.2 mmol/L (3.5-5.1) Chloride Level 108 mmol/L (98-107) Carbon Dioxide Level 27 mmol/L (21-32) Anion Gap 10 (6-14) Blood Urea Nitrogen 9 mg/dL (7-20) Creatinine 0.5 mg/dL (0.6-1.0) Estimated GFR (Cockcroft-Gault) 134.0 BUN/Creatinine Ratio 18 (6-20) Glucose Level 97 mg/dL (70-99) Calcium Level 8.0 mg/dL (8.5-10.1) Total Bilirubin 0.2 mg/dL (0.2-1.0) Aspartate Amino Transf (AST/SGOT) 5 U/L (15-37) Alanine Aminotransferase (ALT/SGPT) < 6 U/L (14-59) Alkaline Phosphatase 66 U/L (46-116) Total Protein 5.9 g/dL (6.4-8.2) Albumin 1.9 g/dL (3.4-5.0) Albumin/Globulin Ratio 0.5 (1.0-1.7) Problem List s/p appy stable, wbc normal, afebrile dc home oral abx [employer] Oct 19, 2019 11:34
--- NOTE | 2019-10-19 11:55 | NUR ---
Pt. discharged to home with Rx, verbalized understanding of discharge instructions. Abd [facility].
== END 2019-10-19 13:10 | disposition home or self-care (01) | DRG 853 ==
LOC: 4 NORTH 02:00
PROVIDERS: ADMIT Internal Medicine; ATTEND Internal Medicine
PROC: 0DTJ4ZZ Resection of Appendix, Percutaneous Endoscopic Approach (ICD-10-PCS; principal; 2019-10-14 12:15)
DX: A41.9 Sepsis, unspecified organism (principal); K35.32 Acute appendicitis with perforation, localized peritonitis, and gangrene, without abscess; I96 Gangrene, not elsewhere classified; F17.210 Nicotine dependence, cigarettes, uncomplicated; F32.9 Major depressive disorder, single episode, unspecified; Z90.721 Acquired absence of ovaries, unilateral
CPT/HCPCS: 36415; 74177; 80048; 80053; 81025; 83735; 85007; 85025; 85610; 88304; A7015; J1100; J1170; J1650; J1885; J2001; J2270; J2370; J2405; J2543; J2704; J2710; J3010; J3475; J3480; J3490; J7030; Q9966; G0378